=== PATIENT | female | born 1955 | race Caucasian/White ===

== ENCOUNTER 2021-06-17 17:29 | Inpatient (IN) ==
[2021-06-17] MEDS ORDERED: MoRPHine SULFATE 4 MG/ML 1 ML CARP\\VIAL IV STA (18:16)
[2021-06-17] MEDS ORDERED: CYCLOBENZAPRINE HCL 10 MG TAB PO STA (18:16)
[2021-06-17] MEDS ORDERED: KETOROLAC TROMETHAMINE 15 MG/ML VIAL IV ONE (18:16)
[2021-06-17] MEDS ORDERED: LIDOCAINE 5% 1 PATCH TD SCH (18:30)
[2021-06-17 18:59] LABS: Basophils # (auto) 0.05 K/uL (0-0.2); Basophils % (auto) 0.6 %; Eosinophils # (auto) 0.33 K/uL (0-0.5); Eosinophils % (auto) 3.9 %; Hematocrit (blood only) 38.3 % (37-47); Hemoglobin 12.6 g/dL (12.0-16.0); Immature Granulocytes # (auto) 0.01 K/uL (0.00-0.02); Immature Granulocytes % (auto) 0.1 %; Lymphocytes # (auto) 3.37 K/uL (1.2-3.4); Lymphocytes % (auto) 39.6 %; Mean Corpuscular Hemoglobin 30.2 pg (25-34); Mean Corpuscular Hgb Conc 32.9 g/dL (32-36); Mean Corpuscular Volume 91.8 fL (80-100); Mean Platelet Volume 10.9 fL (7.4-10.4); Monocytes % (auto) 9.4 %; Neutrophils # (auto) 3.96 K/uL (1.4-6.5); Neutrophils % (auto) 46.4 %; Platelet Count 308 K/uL (130-400); RDW Coefficient of Variation 12.7 % (11.5-14.5); RDW Standard Deviation 42.7 fL (36.4-46.3); Red Blood Count 4.17 M/uL (4.2-5.4); White Blood Count 8.52 K/uL (4.8-10.8)
[2021-06-17 19:09] LABS: Prothrombin Time 10.4 Seconds (9.0-12.0)
[2021-06-17 19:24] LABS: Albumin Level 3.7 gm/dl (3.4-5.0); BUN Creatinine Ratio 21.4 (10-20); Calcium 9.6 mg/dl (8.5-10.1); Creatinine Clr Calc Pharmacy 85.4 ml/min; Est GFR (African American) 84.6 ml/min; Potassium 3.5 mmol/L (3.5-5.1)
[2021-06-17 19:28] LABS: Bilirubin,Total 0.3 mg/dl (0.2-1); Globulin 3.6 gm/dl (2.5-4.0); Total Protein 7.3 gm/dl (6.4-8.2)
--- NOTE | 2021-06-17 19:29 | Emergency Department Note ---
History of Present Illness General Chief complaint: Back Injury/Pain Stated complaint: BACK PAIN, SURG WAS RESCHEDULED FOR PLACEMENT/BOLT History of Present Illness Maximum Pain Intensity: 9 This patient is a 66-year-old female who presents to the emergency department via private vehicle for evaluation of severe low back pain. The patient has a history of chronic back pain, and was due for surgery several times, which was canceled. The pain is Rating down her leg. She is also complaining of numbness and tingling down the anterior aspect of her left leg. This has been getting progressively worse over the last several months. She denies any recent injury. She has been taking Tylenol with minimal pain relief. The patient follows with Dr. Quintero. She denies any infectious symptoms such as fever. No urinary symptoms. No bowel incontinence. Home Medications Medication Instructions Recorded Confirmed Type ascorbic acid (vitamin C) 500 mg 500 mg PO QAM 03/20/21 06/17/21 History tablet (Vitamin C) atorvastatin 80 mg tablet 80 mg PO QPM 03/20/21 06/17/21 History cinnamon bark 500 mg capsule 1,000 mg PO QPM 03/20/21 06/17/21 History (Cinnamon) coQ10 (ubiquinol) 100 mg capsule 100 mg PO QAM 03/20/21 06/17/21 History diclofenac sodium 50 mg 50 mg PO QAM 03/20/21 06/17/21 History tablet,delayed release ferrous sulfate 325 mg (65 mg 325 mg PO QAM 03/20/21 06/17/21 History iron) tablet (iron) hydrochlorothiazide 25 mg tablet 25 mg PO QAM 03/20/21 06/17/21 History levocetirizine 5 mg tablet 5 mg PO QPM 03/20/21 06/17/21 History lutein 20 mg capsule 20 mg PO QAM 03/20/21 06/17/21 History metformin 500 mg tablet 500 mg PO BID 03/20/21 06/17/21 History multivitamin 1 tab PO QAM 03/20/21 06/17/21 History potassium chloride 10 mEq 10 meq PO QAM 03/20/21 06/17/21 History capsule,extended release quinapril 40 mg tablet 40 mg PO QPM 03/20/21 06/17/21 History venlafaxine 75 mg tablet 75 mg PO QAM 03/20/21 06/17/21 History verapamil 240 mg tablet,extended 240 mg PO QAM 03/20/21 06/17/21 History release aspirin 81 mg tablet,delayed 81 mg PO DAILY 06/17/21 06/17/21 History release calcium carb-Ca gluc 500 mg 1 tab PO QAM 06/17/21 06/17/21 History calcium-magnesium ox-Mg gluc 250 mg tablet (Calcium Magnesium) omega [id number]-fish oil 1,000 mg 1 cap PO BID 06/17/21 06/17/21 History (120 mg-180 mg) capsule (Fish Oil) Allergies Allergy/AdvReac Type Severity Reaction Status Date / Time No Known Allergies Allergy Verified 03/20/21 14:27 Past Med/Surg History Medical History Anemia Deep vein thrombosis 15+ years ago, on AC for short period of time, unknown etiology Diabetes mellitus, type 2 NIDDM Hx of migraines Hyperlipidemia Hypertension Lyme disease s/p treatment 01/2021 Macular degeneration Osteoarthritis Sleep apnea CPAP Spinal stenosis Surgical History H/O eye surgery R/L (laser surgery) History of colonoscopy History of hysterectomy History of tonsillectomy History of tooth extraction History of total knee replacement R/L Family History Mother Family history of diabetes mellitus Brother Family history of diabetes mellitus Sister No problems noted. Sister Family history of diabetes mellitus Father Family hx of colon cancer Other No family history of adverse response to anesthesia Social History Smoking Status: Never smoker Second Hand Exposure: No; Hx Alcohol Use: No Hx Substance Use: No Preferred Language: Bulgarian Communication Ability: Effective Photographic Technician Required: No Beliefs That Will Affect Care: None marital status: Current Living Situation: Spouse Feels Safe at Home: Yes Assistive Devices: Cane and Walker Review of Systems A total of 10 systems reviewed and were otherwise negative Physical Exam Vital Signs Vital Signs - 24 hr 06/17/21 17:48 06/17/21 20:14 Temperature 36.4 C L Temperature Source Oral Pulse Rate 77 Pulse Rhythm Regular Pulse Strength Normal Respiratory Rate 18 Respiratory Effort / Characteristics Non-Labored Spontaneous Respiratory Depth Normal Respiratory Pattern Regular Blood Pressure 195/103 H Blood Pressure [Left Arm] 142/69 H Blood Pressure Mean 133 Blood Pressure Mean [Left Arm] 93 Blood Pressure Position Sitting Blood Pressure Position [Left Arm] Lying Pulse Oximetry 96 Oxygen Delivery Method Room Air Sepsis Recent Fever Within 48 Hours No Sepsis New/Unexplained Change in Mental Status No Sepsis Action Taken by Nursing No Action Required See below Constitutional WD/WN, vitals as above Eyes EOM intact bilaterally ENMT external ear and nose normal, oropharynx normal Neck trachea midline Respiratory normal respiratory effort, lungs clear to auscultation Cardiovascular RRR, no murmur, no edema Gastrointestinal (Abdomen) normal bowel sounds, soft, nontender, no hepatosplenomegaly Musculoskeletal no cyanosis or clubbing, extremities motor strength 5/5 Mild tenderness to palpation over the lumbar spinous processes. Quadricep, hamstring, dorsiflexion, plantarflexion 5+5 bilaterally. DP pulse +2 bilaterally. Sensation in the lower extremities appears to be intact bilaterally. Skin no rashes, warm and dry Neurologic Alert and oriented x3. No focal motor deficits. Psychiatric Acting appropriately Course Course Patient was seen and examined Vital signs including blood pressure were reviewed medications list was verified with patient Labs were obtained, and a saline lock was established The patient was ordered morphine, Toradol, Flexeril and a Lidoderm patch The case was discussed with my supervising physician Upon reevaluation, the patient was more comfortable. We discussed disposition options. She was uncomfortable being discharged home and was concerned about he r pain. The case was discussed with orthopedics and also the hospitalist service. They kindly agreed to evaluate the patient for likely inpatient management. Consultations Consultation #1: Dr. Quintero Consultation #2: Dr. Jj Administered Medications Acetaminophen (Acetaminophen 325 Mg Tab) 650 mg PO Q4H PRN PRN Reason: pain/fever Stop: 07/17/21 23:33 Last Admin: 06/18/21 17:13 Dose: 650 mg Documented by: [id number] Atorvastatin Calcium (Atorvastatin 40 Mg Tab) 80 mg PO QPM [facility] Stop: 07/18/21 20:59 Last Admin: 06/18/21 21:49 Dose: 80 mg Documented by: [id number] Cetirizine HCl (Cetirizine Hcl 10 Mg Tablet) 10 mg PO QPM [facility] Stop: 07/18/21 20:59 Last Admin: 11/16/21 21:34 Dose: 10 mg Documented by: [id number] Docusate Sodium (Docusate Sodium 100 Mg Cap) 100 mg PO BID [facility] Stop: 07/18/21 20:59 Last Admin: 06/18/21 21:34 Dose: 100 mg Documented by: [id number] Enalapril Maleate (Enalapril Maleate 10 Mg Tab) 40 mg PO QPM [facility] Stop: 07/18/21 20:59 Last Admin: 06/18/21 21:36 Dose: 40 mg Documented by: [id number] Hydrochlorothiazide (Hydrochlorothiazide 25 Mg Tab) 25 mg PO QAM [facility] Stop: 07/18/21 08:59 Last Admin: 06/18/21 08:28 Dose: 25 mg Documented by: [id number] Insulin Aspart (Insulin Aspart 100 Units/Ml 3 Ml Pen) 0 units SC ACHS [facility] Stop: 07/18/21 16:29 Last Admin: 06/18/21 21:48 Dose: Not Given Documented by: [id number] Cosigned by: [id number] Admin: 06/18/21 18:06 Dose: Not Given Documented by: [id number] Lidocaine (Lidocaine 5% 1 Patch) 1 patch TD QAM [facility] Stop: 07/18/21 08:59 Last Admin: 06/18/21 08:29 Dose: 1 patch Documented by: [id number] Miscellaneous (Remove Lidoderm Patch) 1 ea N/A DAILY@2100 [facility] Stop: 07/18/21 20:59 Last Admin: 06/18/21 21:38 Dose: 1 ea Documented by: [id number] Morphine Sulfate (Morphine Sulfate 2 Mg/Ml Carp) 2 mg IV Q3H PRN PRN Reason: Pain (1,2,3,4,5) & Pre PT Stop: 07/01/21 23:33 Last Admin: 06/18/21 08:57 Dose: 2 mg Documented by: [id number] Polyethylene Glycol (Polyethylene (Miralax) 17 Gm Pack) 17 gm PO DAILY [facility] Stop: 07/18/21 08:59 Last Admin: 06/18/21 08:57 Dose: 17 gm Documented by: [id number] Venlafaxine HCl (Venlafaxine Hcl Xr 75 Mg Capxr) 75 mg PO QAM [facility] Stop: 07/18/21 08:59 Last Admin: 06/18/21 08:30 Dose: 75 mg Documented by: [id number] Verapamil HCl (Verapamil Hcl 240 Mg Tabcr) 240 mg PO QAM [facility] Stop: 07/18/21 08:59 Last Admin: 06/18/21 08:31 Dose: 240 mg Documented by: [id number] Discontinued Medications Cyclobenzaprine HCl (Cyclobenzaprine Hcl 10 Mg Tab) 5 mg PO NOW STA Stop: 06/17/21 18:17 Last Admin: 06/17/21 18:42 Dose: 5 mg Documented by: [id number] Insulin Aspart (Insulin Aspart 100 Units/Ml 3 Ml Pen) 0 units SC Q6 [facility] Stop: 07/18/21 00:00 Last Admin: 06/18/21 12:12 Dose: Not Given Documented by: [id number] Admin: 06/18/21 06:43 Dose: Not Given Documented by: [id number] Cosigned by: [id number] Admin: 06/18/21 00:51 Dose: Not Given Documented by: [id number] Cosigned by: [id number] Ketorolac Tromethamine (Ketorolac Tromethamine 15 Mg/Ml Vial) 15 mg IV NOW ONE Stop: 06/17/21 18:17 Last Admin: 06/17/21 18:42 Dose: 15 mg Documented by: [id number] Lidocaine ([facility]oc[facility] 5% 1 Patch) [facility] Stop: 07/17/21 18:29 Last Admin: 06/17/21 18:44 Dose: 1 patch Documented by: [id number] Miscellaneous (Remove Lidoderm Patch) 1 ea N/A DAILY@2100 [facility] Stop: 07/17/21 20:59 Last Admin: 06/17/21 20:19 Dose: Not Given Documented by: [id number] Miscellaneous (Xyzal~Order Awaiting Action) 1 ea N/A QS [facility] Stop: 07/18/21 00:00 Last Admin: 06/18/21 08:28 Dose: Not Given Documented by: [id number] Admin: 06/18/21 00:40 Dose: Not Given Documented by: [id number] Morphine Sulfate (Morphine Sulfate 4 Mg/Ml 1 Ml Carp\Vial) 4 mg IV NOW STA Stop: 06/17/21 18:17 Last Admin: 06/17/21 18:46 Dose: 4 mg Documented by: [id number] Morphine Sulfate (Morphine Sulfate 2 Mg/Ml Carp) 2 mg IV NOW STA Stop: 06/17/21 20:09 Last Admin: 06/17/21 20:41 Dose: 2 mg Documented by: [id number] Medical Decision Making Medical Records Attestation: I reviewed the patient's medical records. Home Medications Current Medication List: was personally reviewed by me Laboratory Data Attestation: I reviewed the patient's lab results. Result diagrams: 06/17/21 18:39 06/17/21 18:39 Lab Results 06/17/21 06/17/21 06/17/21 Range/Units 18:39 18:39 18:39 WBC 8.52 (4.8-10.8) K/uL RBC 4.17 L (4.2-5.4) M/uL Hgb 12.6 (12.0-16.0) g/dL Hct 38.3 (37-47) % MCV 91.8 (80-100) fL MCH 30.2 (25-34) pg MCHC 32.9 (32-36) g/dL RDW Std Deviation 42.7 (36.4-46.3) fL RDW Coeff of Mone 12.7 (11.5-14.5) % Plt Count 308 (130-400) K/uL MPV 10.9 H (7.4-10.4) fL Immature Gran % (Auto) 0.1 % Neut % (Auto) 46.4 % Lymph % (Auto) 39.6 % [place] % (Auto) 9.4 % Eos % (Auto) 3.9 % Baso % (Auto) 0.6 % Neut # (Auto) 3.96 (1.4-6.5) K/uL Lymph # (Auto) 3.37 (1.2-3.4) K/uL [place] # (Auto) 0.80 H (0.11-0.59) K/uL Eos # (Auto) 0.33 (0-0.5) K/uL Baso # (Auto) 0.05 (0-0.2) K/uL Immature Gran # (Auto) 0.01 (0.00-0.02) K/uL PT 10.4 (9.0-12.0) Seconds INR 1.0 (0.9-1.1) Sodium 141 (136-145) mmol/L Potassium 3.5 (3.5-5.1) mmol/L Chloride 105 (98-107) mmol/L Carbon Dioxide 30 (21-32) mmol/L Anion Gap 6.0 (3-11) BUN 18 (7-18) mg/dl Creatinine 0.83 (0.6-1.2) mg/dl Est Cr Clr Drug Dosing 85.4 ml/min Est GFR ( Amer) 84.6 ml/min Est GFR (Non-Af Amer) 73.0 ml/min BUN/Creatinine Ratio 21.4 H (10-20) Glucose 126 H (70-99) mg/dl Estimat Average Glucose mg/dl Hemoglobin A1c (4.5-5.6) % Calcium 9.6 (8.5-10.1) mg/dl Total Bilirubin 0.3 (0.2-1) mg/dl AST 19 (15-37) U/L ALT 34 (12-78) U/L Alkaline Phosphatase 73 (45-117) U/L Total Protein 7.3 (6.4-8.2) gm/dl Albumin 3.7 (3.4-5.0) gm/dl Globulin 3.6 (2.5-4.0) gm/dl Albumin/Globulin Ratio 1.0 (0.9-2) Hepatitis C Ab Screen (Neg) 06/17/21 06/17/21 Range/Units 18:39 18:39 WBC (4.8-10.8) K/uL RBC (4.2-5.4) M/uL Hgb (12.0-16.0) g/dL Hct (37-47) % MCV (80-100) fL MCH (25-34) pg MCHC (32-36) g/dL RDW Std Deviation (36.4-46.3) fL RDW Coeff of Mone (11.5-14.5) % Plt Count (130-400) K/uL MPV (7.4-10.4) fL Immature Gran % (Auto) % Neut % (Auto) % Lymph % (Auto) % [place] % (Auto) % Eos % (Auto) % Baso % (Auto) % Neut # (Auto) (1.4-6.5) K/uL Lymph # (Auto) (1.2-3.4) K/uL [place] # (Auto) (0.11-0.59) K/uL Eos # (Auto) (0-0.5) K/uL Baso # (Auto) (0-0.2) K/uL Immature Gran # (Auto) (0.00-0.02) K/uL PT (9.0-12.0) Seconds INR (0.9-1.1) Sodium (136-145) mmol/L Potassium (3.5-5.1) mmol/L Chloride (98-107) mmol/L Carbon Dioxide (21-32) mmol/L Anion Gap (3-11) BUN (7-18) mg/dl Creatinine (0.6-1.2) mg/dl Est Cr Clr Drug Dosing ml/min Est GFR ( Amer) ml/min Est GFR (Non-Af Amer) ml/min BUN/Creatinine Ratio (10-20) Glucose (70-99) mg/dl Estimat Average Glucose 157 mg/dl Hemoglobin A1c 7.1 H (4.5-5.6) % Calcium (8.5-10.1) mg/dl Total Bilirubin (0.2-1) mg/dl AST (15-37) U/L ALT (12-78) U/L Alkaline Phosphatase (45-117) U/L Total Protein (6.4-8.2) gm/dl Albumin (3.4-5.0) gm/dl Globulin (2.5-4.0) gm/dl Albumin/Globulin Ratio (0.9-2) Hepatitis C Ab Screen Neg (Neg) Imaging Data Attestation: I personally reviewed and interpreted this imaging study as follows: MDM Narrative Differential diagnosis: Spine fracture, ligamentous injury, subluxation, spondylolisthesis, spondylosis, herniated disc, contusion, muscle spasm, cauda equina syndrome, infectious etiology, among others were considered This patient is a 66-year-old female who presents emergency department with complaints of severe back pain. On exam, she was significantly hypertensive. Otherwise, vitals are stable. She was neurovascularly intact. She did have some tenderness over the spine. The patient reports having an MRI back in April. As she has not had any recent falls, I did not find extensive imaging necessary. Labs are unremarkable. The patient was hesitant about being discharged due to not being able to manage her pain at home. She did require multiple rounds of pain medication in the emergency department. For this reason, the case was discussed with orthopedics. They recommended speaking with the hospitalist for admission for pain management. The patient will be de finitively taken to the OR tomorrow. She remained stable in the emergency department. Attending Attestation: Lambert Gaston MD independently saw and evaluated this patient and agree with history and physical is otherwise documented by the physician production assistant. See their note for full details. Patient with history of back issues and has been following with Dr. Quintero. Uncontrolled pain but some improvement after IV meds here. Feels touch in both feet but some numbness to the L left which has been an ongoing issue. Patient denies falls. Patient's surgery has been postponed. Given poor pain control patient was uncomfortable with going home and will be admitted. Impression & Plan Lumbar radiculopathy, Sciatica Discharge Plan Visit Data Chief Complaint: Back Injury/Pain Stated Complaint: BACK PAIN, SURG WAS RESCHEDULED FOR PLACEMENT/BOLT ED Midlevel Provider: Shruthi Rowley Discharge Problem: Lumbar radiculopathy, Sciatica Patient Disposition: Admitted As Inpatient Discharge Instructions Interventions: ED Discharge Assessment Last Done: 06/17/21 22:00
[2021-06-17] MEDS ORDERED: MoRPHine SULFATE 2 MG/ML CARP IV STA (20:08)
--- NOTE | 2021-06-17 20:58 | History & Physical Report ---
Date of Service June 17, 2021 Assessment & Plan (1) Neurogenic claudication due to lumbar spinal stenosis: Plan: 66 yo F with hx neurogenic claudication due to lumbar spinal stenosis admitted for pain control and surgical intervention Pain control - morphine 2 mg IV Q3H - Tylenol 650 Q6h prn - toradol IV 15 mg Q6h - Surgery with Dr. Quintero in AM - holding oral diclofenac perioperatively DM2 - holding metformin - Q6H BSG while NPO - A1c in AM CAD - low risk for cardiac events, evaluated for pre-operative risk by scalper operator on 04/18/21 "Cleared from cardiac standpoint.. dyslipidemia, no clinical ASVCD. Continue lipitor.. hypertension, borderline controlled. Continue Quinapril, HCTZ, Verapamil" - continuing statin in hospital, holding ASA, HCTZ, Abiodun inhibitor anita- operatively - continue verapamil COVID19 - positive on May 29, received antibodies on jun 02 - positive pcr on 06/17 - asymptomatic at this time DVT ppx: SCDs after surgery FEN/GI: NPO at [place] Bowel regimen: prn miralax Code Status: Full Code Dispo: Med/Surg -- non-covid a[place]re negative pressure room (2) Encounter for pre-operative examination: (3) Inadequate pain control: (4) COVID-19: History of Present Illness Primary Care Provider: Shelly Bynum 66 yo F with chronic low back pain who follows with Dr. Quintero presents to the ER this evening for worsening low back pain. She states that the pain got steadily worse this afternoon. No inciting incident to worsen pain. Does have some peripheral tingling/numbness in the left leg. Pain radiates down left leg. No nausea/vomiting/diarrhea/constipation. She states the pain is the same pain she's had for months but just steadily getting worse because her surgery has gotten rescheduled multiple times. She was already scheduled for surgery with Dr. Quintero tomorrow 06/18. Allergies Allergy/AdvReac Type Severity Reaction Status Date / Time No Known Allergies Allergy Verified 03/20/21 14:27 Home Medications Medication Instructions Recorded Confirmed Type ascorbic acid (vitamin C) 500 mg 500 mg PO QAM 03/20/21 06/17/21 History tablet (Vitamin C) atorvastatin 80 mg tablet 80 mg PO QPM 03/20/21 06/17/21 History cinnamon bark 500 mg capsule 1,000 mg PO QPM 03/20/21 06/17/21 History (Cinnamon) coQ10 (ubiquinol) 100 mg capsule 100 mg PO QAM 03/20/21 06/17/21 History diclofenac sodium 50 mg 50 mg PO QAM 03/20/21 06/17/21 History tablet,delayed release ferrous sulfate 325 mg (65 mg 325 mg PO QAM 03/20/21 06/17/21 History iron) tablet (iron) hydrochlorothiazide 25 mg tablet 25 mg PO QAM 03/20/21 06/17/21 History levocetirizine 5 mg tablet 5 mg PO QPM 03/20/21 06/17/21 History lutein 20 mg capsule 20 mg PO QAM 03/20/21 06/17/21 History metformin 500 mg tablet 500 mg PO BID 03/20/21 06/17/21 History multivitamin 1 tab PO QAM 03/20/21 06/17/21 History potassium chloride 10 mEq 10 meq PO QAM 03/20/21 06/17/21 History capsule,extended release quinapril 40 mg tablet 40 mg PO QPM 03/20/21 06/17/21 History venlafaxine 75 mg tablet 75 mg PO QAM 03/20/21 06/17/21 History verapamil 240 mg tablet,extended 240 mg PO QAM 03/20/21 06/17/21 History release aspirin 81 mg tablet,delayed 81 mg PO DAILY 06/17/21 06/17/21 History release calcium carb-Ca gluc 500 mg 1 tab PO QAM 06/17/21 06/17/21 History calcium-magnesium ox-Mg gluc 250 mg tablet (Calcium Magnesium) omega 5-snj-ozk-fish oil 1,000 mg 1 cap PO BID 06/17/21 06/17/21 History (120 mg-180 mg) capsule (Fish Oil) Past Med/Surg History Medical History Anemia Deep vein thrombosis 15+ years ago, on AC for short period of time, unknown etiology Diabetes mellitus, type 2 NIDDM Hx of migraines Hyperlipidemia Hypertension Lyme disease s/p treatment 01/2021 Macular degeneration Osteoarthritis Sleep apnea CPAP Spinal stenosis Surgical History H/O eye surgery R/L (laser surgery) History of colonoscopy History of hysterectomy History of tonsillectomy History of tooth extraction History of total knee replacement R/L Family History Mother Family history of diabetes mellitus Brother Family history of diabetes mellitus Sister No problems noted. Sister Family history of diabetes mellitus Father Family hx of colon cancer Other No family history of adverse response to anesthesia Social History Smoking Status: Never smoker Second Hand Exposure: No; Hx Alcohol Use: No Hx Substance Use: No Preferred Language: Lao Advanced Clinical Specialist Required: No Beliefs That Will Affect Care: None Current Living Situation: Spouse Other Information That Helps Us Care for You: No Feels Safe at Home: Yes Safety Concerns: Feels Safe At This Time Assistive Devices: CPAP and Glasses Assistive Devices Comment: CPAP glasses Review of Systems Constitutional: no fever, no chills, no body aches and no fatigue Respiratory: no cough and no dyspnea Cardiovascular: no chest pain, no dyspnea and no edema Gastrointestinal: no abdominal pain, no nausea, no vomiting, no constipation and no diarrhea/loose stools Genitourinary: no dysuria Musculoskeletal: + back pain and + radicular pain Neurologic: no tingling, no numbness, no dizziness and no confusion Physical Exam Physical Exam: Constitutional: obese, in no apparent distress, sitting comfortably in bed. Eyes: EOMI, pupils equal and reactive bilaterally, no scleral icterus Cardiac: RRR, no murmurs, gallops or rubs. Normal S1, S2 Pulm: CTA BL, no wheezes, rhonchi, crackles or rubs, moving air well throughout both lungs Abd: soft, nontender, nondistended, normal bowel sounds, no rebound or guarding Extremities: 2+ peripheral pulses, no edema Neuro: no focal deficits, moving all 4 limbs, A&Ox3 Results & Data Results & Data ([facility]) Vital Signs (Past 12 Hours) Vital Signs Temp Pulse Resp BP BP Pulse Ox 06/17/21 20:14 142/69 H 06/17/21 17:48 36.4 C L 77 18 195/103 H 96 Laboratory Results Laboratory Results WBC 8.52 K/uL (4.8-10.8) 06/17/21 18:39 RBC 4.17 M/uL (4.2-5.4) L 06/17/21 18:39 Hgb 12.6 g/dL (12.0-16.0) 06/17/21 18:39 Hct 38.3 % (37-47) 06/17/21 18:39 MCV 91.8 fL (80-100) 06/17/21 18:39 MCH 30.2 pg (25-34) 06/17/21 18:39 MCHC 32.9 g/dL (32-36) 06/17/21 18:39 RDW Std Deviation 42.7 fL (36.4-46.3) 06/17/21 18:39 RDW Coeff of Mone 12.7 % (11.5-14.5) 06/17/21 18:39 Plt Count 308 K/uL (130-400) 06/17/21 18:39 MPV 10.9 fL (7.4-10.4) H 06/17/21 18:39 Immature Gran % (Auto) 0.1 % 06/17/21 18:39 Neut % (Auto) 46.4 % 06/17/21 18:39 Lymph % (Auto) 39.6 % 06/17/21 18:39 [place] % (Auto) 9.4 % 06/17/21 18:39 Eos % (Auto) 3.9 % 06/17/21 18:39 Baso % (Auto) 0.6 % 06/17/21 18:39 Neut # (Auto) 3.96 K/uL (1.4-6.5) 06/17/21 18:39 Lymph # (Auto) 3.37 K/uL (1.2-3.4) 06/17/21 18:39 [place] # (Auto) 0.80 K/uL (0.11-0.59) H 06/17/21 18:39 Eos # (Auto) 0.33 K/uL (0-0.5) 06/17/21 18:39 Baso # (Auto) 0.05 K/uL (0-0.2) 06/17/21 18:39 Immature Gran # (Auto) 0.01 K/uL (0.00-0.02) 06/17/21 18:39 PT 10.4 Seconds (9.0-12.0) 06/17/21 18:39 INR 1.0 (0.9-1.1) 06/17/21 18:39 Sodium 141 mmol/L (136-145) 06/17/21 18:39 Potassium 3.5 mmol/L (3.5-5.1) 06/17/21 18:39 Chloride 105 mmol/L (98-107) 06/17/21 18:39 Carbon Dioxide 30 mmol/L (21-32) 06/17/21 18:39 Anion Gap 6.0 (3-11) 06/17/21 18:39 BUN 18 mg/dl (7-18) 06/17/21 18:39 Creatinine 0.83 mg/dl (0.6-1.2) 06/17/21 18:39 Est Cr Clr Drug Dosing 85.4 ml/min 06/17/21 18:39 Est GFR ( Amer) 84.6 ml/min 06/17/21 18:39 Est GFR (Non-Af Amer) 73.0 ml/min 06/17/21 18:39 BUN/Creatinine Ratio 21.4 (10-20) H 06/17/21 18:39 Glucose 126 mg/dl (70-99) H 06/17/21 18:39 Calcium 9.6 mg/dl (8.5-10.1) 06/17/21 18:39 Total Bilirubin 0.3 mg/dl (0.2-1) 06/17/21 18:39 AST 19 U/L (15-37) 06/17/21 18:39 ALT 34 U/L (12-78) 06/17/21 18:39 Alkaline Phosphatase 73 U/L (45-117) 06/17/21 18:39 Total Protein 7.3 gm/dl (6.4-8.2) 06/17/21 18:39 Albumin 3.7 gm/dl (3.4-5.0) 06/17/21 18:39 Globulin 3.6 gm/dl (2.5-4.0) 06/17/21 18:39 Albumin/Globulin Ratio 1.0 (0.9-2) 06/17/21 18:39 COVID-19 Eval Order Covid19 at [facility] 06/17/21 Unknown Supervising Physician Co-Signing Physician Notes Patient seen and examined, chart reviewed, case discussed with Dr. Guthrie and I agree with her assessment and plan as documented above. In brief, patient is a 66yo female with acute worsening of chronic back pain. Patient denies fall, trauma, fever, chills. She has some numbness/tingling and neurogenic claudication involving the LLE. No changes in bowel/bladder. Pain significantly worse which prompted her to seek ER care. She is scheduled for surgery with Dr. Quintero tomorrow. On exam she is afebrile, hypertensive, otherwise HD stable. NAD, resting comfortably in bed Skin - warm, dry, intact HEENT - NC/AT, PERRL, MMM, Neck supple Heart - +S1/S2, regular, no m/r/g Lungs - CTA Abd - +BS, soft, NT/ND Ext - No edema Labs and images reviewed. Covid-19 PCR is POSITIVE Assessment/Plan Covid-19 - patient was first diagnosed with Covid-19 on 05/29/21. She reports overall improvement in symptoms - is afebrile, no respiratory complaints. Her PCR testing is POSITIVE today most likely demonstrating detectable viral RNA particles rather than ongoing infection. Will continue isolation precautions in private room if able Ortho consultation appreciated. Pain control Remainder of plan as above Resident Activity Tracking Resident Involvement: Resident Care Provided Care Provided: Adult Hospital Medicine
[2021-06-17] MEDS ORDERED: ONDANSETRON INJ 2 MG/ML 2 ML VIAL IV PRN (23:34)
[2021-06-17] MEDS ORDERED: GLUCOSE 40% GEL 15 GM TUBE PO PRN (23:34)
[2021-06-17] MEDS ORDERED: GLUCOSE 10 TABS/TUBE PO PRN (23:34)
[2021-06-17] MEDS ORDERED: KETOROLAC TROMETHAMINE 15 MG/ML VIAL IV PRN (23:34)
[2021-06-17] MEDS ORDERED: GLUCAGON FOR INJ 1 MG VIAL SQ PRN (23:34)
[2021-06-17] MEDS ORDERED: CARBOHYDRATES FOR HYPOGLYCEMIA PO PRN (23:34)
[2021-06-17] MEDS ORDERED: DEXTROSE 50% 50 ML SYRINGE IV PRN (23:34)
[2021-06-17] MEDS ORDERED: MELATONIN 3 MG TAB PO PRN (23:34)
[2021-06-18] MEDS: XYZAL~ORDER AWAITING ACTION SCH ×2 (00:40→08:28)
[2021-06-18] MEDS: INSULIN ASPART 100 UNITS/ML 3 ML PEN SC SCH ×5 (00:51→21:48)
--- NOTE | 2021-06-18 02:03 | Billing Data ---
Date of Service June 17, 2021 Coding Level of Care Code 06736 Initial Inpt Care Lvl 2
[2021-06-18 07:41] LABS: Estimated Average Glucose 157 mg/dl; Hemoglobin A1C 7.1 % (4.5-5.6)
[2021-06-18] MEDS: hydroCHLOROthiazide 25 MG TAB PO SCH (08:28)
[2021-06-18] MEDS: LIDOCAINE 5% 1 PATCH TD SCH (08:29)
[2021-06-18] MEDS: VENLAFAXINE HCL XR 75 MG CAPXR PO SCH (08:30)
--- NOTE | 2021-06-18 08:30 | Orthopedic Consultation ---
Date of Consultation June 18, 2021 Assessment & Plan (1) Neurogenic claudication due to lumbar spinal stenosis: This time she is presenting with worsening pain and in a new pattern of groin symptoms. I like to obtain an MRI lumbar spine to rule out advanced adjacent level disease. Ultimately she will require at minimum lumbar decompression and fusion L4-5 L5-S1 to to adequately decompress the canal and stabilize her instability at the L4-5 L5-S1 levels. She is currently positive f or Covid. She is well beyond the 2-week period of having had symptoms from Covid. Should not ultimately affect her treatment plan at this time. History of Present Illness Reason for Consultation: Back and leg pain Attending Physician: Caprice Jackson MD History of Present Illness This is a 66-year-old female well-known to me the presents with marked clinical status. She continues to have back and bilateral leg pain left greater than right. She now describes pain particularly left buttock radiating to the groin and anterolateral thigh below the knee to the foot. It limits her ability to stand and ambulate. The pain is become uncontrollable. She has been scheduled for surgery several times but canceled secondary to hospital related limitations. Allergies Allergy/AdvReac Type Severity Reaction Status Date / Time No Known Allergies Allergy Verified 03/20/21 14:27 Home Medications Medication Instructions Recorded Confirmed Type ascorbic acid (vitamin C) 500 mg 500 mg PO QAM 03/20/21 06/17/21 History tablet (Vitamin C) atorvastatin 80 mg tablet 80 mg PO QPM 03/20/21 06/17/21 History cinnamon bark 500 mg capsule 1,000 mg PO QPM 03/20/21 06/17/21 History (Cinnamon) coQ10 (ubiquinol) 100 mg capsule 100 mg PO QAM 03/20/21 06/17/21 History diclofenac sodium 50 mg 50 mg PO QAM 03/20/21 06/17/21 History tablet,delayed release ferrous sulfate 325 mg (65 mg 325 mg PO QAM 03/20/21 06/17/21 History iron) tablet (iron) hydrochlorothiazide 25 mg tablet 25 mg PO QAM 03/20/21 06/17/21 History levocetirizine 5 mg tablet 5 mg PO QPM 03/20/21 06/17/21 History lutein 20 mg capsule 20 mg PO QAM 03/20/21 06/17/21 History metformin 500 mg tablet 500 mg PO BID 03/20/21 06/17/21 History multivitamin 1 tab PO QAM 03/20/21 06/17/21 History potassium chloride 10 mEq 10 meq PO QAM 03/20/21 06/17/21 History capsule,extended release quinapril 40 mg tablet 40 mg PO QPM 03/20/21 06/17/21 History venlafaxine 75 mg tablet 75 mg PO QAM 03/20/21 06/17/21 History verapamil 240 mg tablet,extended 240 mg PO QAM 03/20/21 06/17/21 History release aspirin 81 mg tablet,delayed 81 mg PO DAILY 06/17/21 06/17/21 History release calcium carb-Ca gluc 500 mg 1 tab PO QAM 06/17/21 06/17/21 History calcium-magnesium ox-Mg gluc 250 mg tablet (Calcium Magnesium) omega 6-xdb-aid-fish oil 1,000 mg 1 cap PO BID 06/17/21 06/17/21 History (120 mg-180 mg) capsule (Fish Oil) Patient History Medical History Anemia Deep vein thrombosis 15+ years ago, on AC for short period of time, unknown etiology Diabetes mellitus, type 2 NIDDM Hx of migraines Hyperlipidemia Hypertension Lyme disease s/p treatment 01/2021 Macular degeneration Osteoarthritis Sleep apnea CPAP Spinal stenosis Surgical History H/O eye surgery R/L (laser surgery) History of colonoscopy History of hysterectomy History of tonsillectomy History of tooth extraction History of total knee replacement R/L Family History Mother Family history of diabetes mellitus Brother Family history of diabetes mellitus Sister No problems noted. Sister Family history of diabetes mellitus Father Family hx of colon cancer Other No family history of adverse response to anesthesia Social History Smoking Status: Never smoker Second Hand Exposure: No; Hx Alcohol Use: No Hx Substance Use: No Preferred Language: Burmese Underwriting Director Required: No Beliefs That Will Affect Care: None Current Living Situation: Spouse Feels Safe at Home: Yes Assistive Devices: CPAP and Glasses Physical Exam Physical Exam: On exam she is now is in obvious severe distress. She is demonstrate reasonable dorsiflexion plantarflexion extensor hallucis longus as well as quadricep bilaterally. Negative logroll bilaterally. Sensory is intact. Results & Data ([facility]) Vital Signs (Past 12 Hours) Vital Signs Temp Pulse Resp BP Pulse Ox 06/18/21 08:18 36.4 C L 64 16 144/81 H 96 06/18/21 00:22 36.6 C 63 19 156/88 H 99
[2021-06-18] MEDS: VERAPAMIL HCL 240 MG TABCR PO SCH (08:31)
[2021-06-18] MEDS: POLYETHYLENE (MIRALAX) 17 GM PACK PO SCH (08:57)
[2021-06-18] MEDS: MoRPHine SULFATE 2 MG/ML CARP IV PRN (08:57)
[2021-06-18] MEDS ORDERED: hydroCHLOROthiazide 25 MG TAB PO SCH (09:00)
--- NOTE | 2021-06-18 12:53 | Magnetic Resonance Report ---
MR lumbar spine wo con CLINICAL HISTORY: 66 years-old Female with leg pain. Acute severe low back pain with radiation into the left lower extremity. Left lower extremity numbness. COMPARISON: None. TECHNIQUE: Multiplanar, multi sequence MRI of the lumbar spine was performed without intravenous cont rast. FINDINGS: Mildly motion degraded exam. 7.7 x 5.9 cm T2 hyperintense lesion of the right kidney is suggestive of a probable cyst, partially imaged on this study. 1.3 cm L4 and 0.7 cm T11 vertebral body hemangiomat a. 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 No acute fracture, subluxation or endplate erosion. Minimal bone deneen ow edema involving the right L5 pedicle may represent a mild stress response. The conus medullaris te rminates at L1-L2. Signal within the imaged thoracic spinal cord and cauda equina appears unremarkabl e. T11-T12: Mild spondylitic spurring with small posterior annular disc bulge and mild facet arthrosis. Flattening of the ventral thecal sac without significant central canal or neural foraminal narrowing. T12-L1: Mild spondylitic spurring and facet arthrosis. No central canal or neural foraminal stenosis . L1-L2: Mild spondylitic spurring and facet arthrosis. No central canal or neural foraminal stenosis. L2-L3: Minimal intervertebral disc space narrowing with disc desiccation. Mild spondylitic spurring with small posterior annular disc bulge. No central canal or neural foraminal stenosis. L3-L4: Mild disc desiccation with spondylitic spurring and small circumferential annular disc bulge favoring the right lateral recess and right neural foramen. There is ligamentum flavum thickening wit h mild facet arthrosis. No central canal or neural foraminal stenosis. L4-L5: 4 mm anterolisthesis. Mild intervertebral disc space narrowing with disc desiccation, spondyl itic spurring and circumferential annular disc bulge favoring the right neural foramen and far latera l distribution. Severe facet arthrosis with ligamentum flavum thickening. Severe central canal stenos is with AP dimension of the thecal sac measuring approximately 5 mm. Severe right with [id number]-rk-ceutfx te left neural foraminal narrowing. L5-S1: 6 mm anterolisthesis. Mild intervertebral disc space narrowing with disc desiccation, spondyl itic spurring and circumferential annular disc bulge/disc space uncovering. Severe facet arthrosis. M oderate central canal stenosis, AP dimension of the thecal sac measuring 8 mm. There is at least mode rate narrowing of the left lateral recess. Moderate right with moderate to severe left neural foramin al narrowing. IMPRESSION: 1. Grade 1 anterolisthesis L4 on L5 and L5 on S1 is likely secondary to chronic severe facet arthrosi s. 2. At L4-L5, there is severe central canal stenosis with severe right and [id number]-ua-spiqhsdz left neura l foraminal narrowing. 3. Moderate central canal stenosis at L5-S1. 4. Multilevel neural foraminal narrowing as above. ACT 112: Negative or not required by law. The above report was generated using voice recognition software. It may contain grammatical, syntax o r spelling errors. Dictated: 06/18/2021 11:55 AM Transcribed: 06/18/2021 12:39 PM Jody [id number] [email or web address] Electronically signed by: Camilo Chun M.D. 06/18/2021 12:52 PM
[2021-06-18] MEDS ORDERED: Nursing to Pharmacy Communication SCH (15:45)
--- NOTE | 2021-06-18 15:49 | Hospitalist Progress Note ---
Date of Service June 18, 2021 Assessment & Plan (1) Neurogenic claudication due to lumbar spinal stenosis: Plan: 66 yo F with hx neurogenic claudication due to lumbar spinal stenosis admitted for pain control and surgical intervention Pain control - morphine 2 mg IV Q3H - Tylenol 650 Q6h prn - dc toradol as want to avoid NSAIDs prior to spine surgery -add oxycodone 5mg po q4h prn mod-severe pain - Surgery with Dr. Quintero planned likely for -medically optimized for surgery and seen by her Echocardiograph Technician prior to surgery -NPO after midnight Thu (2) Inadequate pain control: Plan: as above (3) COVID-19: Plan: tested positive on 05/29 and had sinus congestion and headache for a few days, received Regeneron on 06/02 and had improvement COVID test here still positive Now asymptomatic and 20 days since initial positive test--> discussed with Infection Control--> remove COVID precautions (4) Hypertension: Plan: BPs controlled to mildly high - continuing HCTZ, restart quinapril but hold both AM of surgery - continue verapamil (5) Sleep apnea: Plan: continue home CPAP qhs (6) Deep vein thrombosis: Plan: h/o such in 2010, unprovoked, treated with AC for several months -add on SCDs, encourage mobilization as able can't use Lovenox in setting of spine surgery (7) Hyperlipidemia: Plan: continue statin (8) Diabetes mellitus, type 2: Plan: - holding metformin - Novolog SSI - A1c 7.1%, well controlled -ADA diet Plan: DVT proph- add SCDs Dispo-continued stay Admission and Anticipated Discharge Date Admission Date: June 17, 2021 Subjective Pt has numbness and pain down her LLE to the foot. Otherwise doing ok as long as not moving. Wants to get up and walk the halls. Denies CP or SOB, no nausea. Review of Systems Review of Systems: All systems reviewed & are unremarkable except as noted in HPI & below Physical Exam Constitutional: WD/WN, vitals as above Neck: trachea midline, no thyromegaly Respiratory: normal respiratory effort, lungs clear to auscultation Cardiovascular: RRR, no murmur, no edema Chest (Breasts): Chest: normal inspection of chest Gastrointestinal (Abdomen): normal bowel sounds, soft, nontender, no hepatosplenomegaly Musculoskeletal: Extremities: extremities normal to inspection; no cyanosis and no clubbing Skin: no rashes, warm and dry Neurologic: moves all extremities and awake; no focal motor deficits Psychiatric: A+Ox3, euthymic affect Lymphatic: no lymphedema Results & Data Results & Data ([facility]) Vital Signs (Past 12 Hours) Vital Signs Temp Pulse Resp BP Pulse Ox 06/18/21 15:46 36.7 C 62 18 144/86 H 94 06/18/21 08:18 36.4 C L 64 16 144/81 H 96 Laboratory Results 06/18/21 06/18/21 06/18/21 Range/Units 12:09 06:18 00:21 WBC (4.8-10.8) K/uL RBC (4.2-5.4) M/uL Hgb (12.0-16.0) g/dL Hct (37-47) % MCV (80-100) fL MCH (25-34) pg MCHC (32-36) g/dL RDW Std Deviation (36.4-46.3) fL RDW Coeff of Mone (11.5-14.5) % Plt Count (130-400) K/uL MPV (7.4-10.4) fL Immature Gran % (Auto) % Neut % (Auto) % Lymph % (Auto) % Warrick % (Auto) % Eos % (Auto) % Baso % (Auto) % Neut # (Auto) (1.4-6.5) K/uL Lymph # (Auto) (1.2-3.4) K/uL Warrick # (Auto) (0.11-0.59) K/uL Eos # (Auto) (0-0.5) K/uL Baso # (Auto) (0-0.2) K/uL Immature Gran # (Auto) (0.00-0.02) K/uL PT (9.0-12.0) Seconds INR (0.9-1.1) Sodium (136-145) mmol/L Potassium (3.5-5.1) mmol/L Chloride (98-107) mmol/L Carbon Dioxide (21-32) mmol/L Anion Gap (3-11) BUN (7-18) mg/dl Creatinine (0.6-1.2) mg/dl Est Cr Clr Drug Dosing ml/min Est GFR ( Amer) ml/min Est GFR (Non-Af Amer) ml/min BUN/Creatinine Ratio (10-20) Glucose (70-99) mg/dl POC Glucose 113 H 123 H 127 H (70-99) mg/dl Estimat Average Glucose mg/dl Hemoglobin A1c (4.5-5.6) % Calcium (8.5-10.1) mg/dl Total Bilirubin (0.2-1) mg/dl AST (15-37) U/L ALT (12-78) U/L Alkaline Phosphatase (45-117) U/L Total Protein (6.4-8.2) gm/dl Albumin (3.4-5.0) gm/dl Globulin (2.5-4.0) gm/dl Albumin/Globulin Ratio (0.9-2) COVID-19 Eval Order SARS-CoV-2 (PCR) (Negative) Hepatitis C Ab Screen (Neg) 06/17/21 06/17/21 06/17/21 Range/Units Unknown Unknown 18:39 WBC (4.8-10.8) K/uL RBC (4.2-5.4) M/uL Hgb (12.0-16.0) g/dL Hct (37-47) % MCV (80-100) fL MCH (25-34) pg MCHC (32-36) g/dL RDW Std Deviation (36.4-46.3) fL RDW Coeff of Mone (11.5-14.5) % Plt Count (130-400) K/uL MPV (7.4-10.4) fL Immature Gran % (Auto) % Neut % (Auto) % Lymph % (Auto) % Warrick % (Auto) % Eos % (Auto) % Baso % (Auto) % Neut # (Auto) (1.4-6.5) K/uL Lymph # (Auto) (1.2-3.4) K/uL Warrick # (Auto) (0.11-0.59) K/uL Eos # (Auto) (0-0.5) K/uL Baso # (Auto) (0-0.2) K/uL Immature Gran # (Auto) (0.00-0.02) K/uL PT (9.0-12.0) Seconds INR (0.9-1.1) Sodium (136-145) mmol/L Potassium (3.5-5.1) mmol/L Chloride (98-107) mmol/L Carbon Dioxide (21-32) mmol/L Anion Gap (3-11) BUN (7-18) mg/dl Creatinine (0.6-1.2) mg/dl Est Cr Clr Drug Dosing ml/min Est GFR ( Amer) ml/min Est GFR (Non-Af Amer) ml/min BUN/Creatinine Ratio (10-20) Glucose (70-99) mg/dl POC Glucose (70-99) mg/dl Estimat Average Glucose mg/dl Hemoglobin A1c (4.5-5.6) % Calcium (8.5-10.1) mg/dl Total Bilirubin (0.2-1) mg/dl AST (15-37) U/L ALT (12-78) U/L Alkaline Phosphatase (45-117) U/L Total Protein (6.4-8.2) gm/dl Albumin (3.4-5.0) gm/dl Globulin (2.5-4.0) gm/dl Albumin/Globulin Ratio (0.9-2) COVID-19 Eval Order Covid19 at [facility] SARS-CoV-2 (PCR) POSITIVE A* (Negative) Hepatitis C Ab Screen Neg (Neg) 06/17/21 06/17/21 06/17/21 Range/Units 18:39 18:39 18:39 WBC (4.8-10.8) K/uL RBC (4.2-5.4) M/uL Hgb (12.0-16.0) g/dL Hct (37-47) % MCV (80-100) fL MCH (25-34) pg MCHC (32-36) g/dL RDW Std Deviation (36.4-46.3) fL RDW Coeff of Mone (11.5-14.5) % Plt Count (130-400) K/uL MPV (7.4-10.4) fL Immature Gran % (Auto) % Neut % (Auto) % Lymph % (Auto) % Warrick % (Auto) % Eos % (Auto) % Baso % (Auto) % Neut # (Auto) (1.4-6.5) K/uL Lymph # (Auto) (1.2-3.4) K/uL Warrick # (Auto) (0.11-0.59) K/uL Eos # (Auto) (0-0.5) K/uL Baso # (Auto) (0-0.2) K/uL Immature Gran # (Auto) (0.00-0.02) K/uL PT 10.4 (9.0-12.0) Seconds INR 1.0 (0.9-1.1) Sodium 141 (136-145) mmol/L Potassium 3.5 (3.5-5.1) mmol/L Chloride 105 (98-107) mmol/L Carbon Dioxide 30 (21-32) mmol/L Anion Gap 6.0 (3-11) BUN 18 (7-18) mg/dl Creatinine 0.83 (0.6-1.2) mg/dl Est Cr Clr Drug Dosing 85.4 ml/min Est GFR ( Amer) 84.6 ml/min Est GFR (Non-Af Amer) 73.0 ml/min BUN/Creatinine Ratio 21.4 H (10-20) Glucose 126 H (70-99) mg/dl POC Glucose (70-99) mg/dl Estimat Average Glucose 157 mg/dl Hemoglobin A1c 7.1 H (4.5-5.6) % Calcium 9.6 (8.5-10.1) mg/dl Total Bilirubin 0.3 (0.2-1) mg/dl AST 19 (15-37) U/L ALT 34 (12-78) U/L Alkaline Phosphatase 73 (45-117) U/L Total Protein 7.3 (6.4-8.2) gm/dl Albumin 3.7 (3.4-5.0) gm/dl Globulin 3.6 (2.5-4.0) gm/dl Albumin/Globulin Ratio 1.0 (0.9-2) COVID-19 Eval Order SARS-CoV-2 (PCR) (Negative) Hepatitis C Ab Screen (Neg) 06/17/21 Range/Units 18:39 WBC 8.52 (4.8-10.8) K/uL RBC 4.17 L (4.2-5.4) M/uL Hgb 12.6 (12.0-16.0) g/dL Hct 38.3 (37-47) % MCV 91.8 (80-100) fL MCH 30.2 (25-34) pg MCHC 32.9 (32-36) g/dL RDW Std Deviation 42.7 (36.4-46.3) fL RDW Coeff of Mone 12.7 (11.5-14.5) % Plt Count 308 (130-400) K/uL MPV 10.9 H (7.4-10.4) fL Immature Gran % (Auto) 0.1 % Neut % (Auto) 46.4 % Lymph % (Auto) 39.6 % Warrick % (Auto) 9.4 % Eos % (Auto) 3.9 % Baso % (Auto) 0.6 % Neut # (Auto) 3.96 (1.4-6.5) K/uL Lymph # (Auto) 3.37 (1.2-3.4) K/uL Warrick # (Auto) 0.80 H (0.11-0.59) K/uL Eos # (Auto) 0.33 (0-0.5) K/uL Baso # (Auto) 0.05 (0-0.2) K/uL Immature Gran # (Auto) 0.01 (0.00-0.02) K/uL PT (9.0-12.0) Seconds INR (0.9-1.1) Sodium (136-145) mmol/L Potassium (3.5-5.1) mmol/L Chloride (98-107) mmol/L Carbon Dioxide (21-32) mmol/L Anion Gap (3-11) BUN (7-18) mg/dl Creatinine (0.6-1.2) mg/dl Est Cr Clr Drug Dosing ml/min Est GFR ( Amer) ml/min Est GFR (Non-Af Amer) ml/min BUN/Creatinine Ratio (10-20) Glucose (70-99) mg/dl POC Glucose (70-99) mg/dl Estimat Average Glucose mg/dl Hemoglobin A1c (4.5-5.6) % Calcium (8.5-10.1) mg/dl Total Bilirubin (0.2-1) mg/dl AST (15-37) U/L ALT (12-78) U/L Alkaline Phosphatase (45-117) U/L Total Protein (6.4-8.2) gm/dl Albumin (3.4-5.0) gm/dl Globulin (2.5-4.0) gm/dl Albumin/Globulin Ratio (0.9-2) COVID-19 Eval Order SARS-CoV-2 (PCR) (Negative) Hepatitis C Ab Screen (Neg) PG Care Time/CCT Total # of Minutes Spent Total Time Spent with Patient: Total time spent is greater than 50% in coordination of care (as documented) at patient's floor/unit and/or counseling patient: Coding Level of Care Code 09854 Subseq Hosp Care Lvl 2 Diagnoses Neurogenic claudication due to lumbar spinal stenosis M48.062 Inadequate pain control R52 COVID-19 U07.1 Hypertension I10 Sleep apnea G47.30 Deep vein thrombosis I82.409 Hyperlipidemia E78.5 Diabetes mellitus, type 2 E11.9
[2021-06-18] MEDS: ACETAMINOPHEN 325 MG TAB PO PRN (17:13)
[2021-06-18] MEDS: CETIRIZINE HCL 10 MG TABLET PO SCH (21:34)
[2021-06-18] MEDS: DOCUSATE SODIUM 100 MG CAP PO SCH (21:34)
[2021-06-18] MEDS: ENALAPRIL MALEATE 10 MG TAB PO SCH (21:36)
[2021-06-18] MEDS: ATORVASTATIN 40 MG TAB PO SCH (21:49)
[2021-06-19] MEDS: VENLAFAXINE HCL XR 75 MG CAPXR PO SCH (09:42)
[2021-06-19] MEDS: DOCUSATE SODIUM 100 MG CAP PO SCH ×2 (09:42→21:58)
[2021-06-19] MEDS: POLYETHYLENE (MIRALAX) 17 GM PACK PO SCH (09:42)
[2021-06-19] MEDS: hydroCHLOROthiazide 25 MG TAB PO SCH (09:43)
[2021-06-19] MEDS: VERAPAMIL HCL 240 MG TABCR PO SCH (09:43)
[2021-06-19] MEDS: LIDOCAINE 5% 1 PATCH TD SCH (09:43)
[2021-06-19] MEDS: INSULIN ASPART 100 UNITS/ML 3 ML PEN SC SCH (09:48)
[2021-06-19] MEDS: INSULIN ASPART 100 UNITS/ML VIAL SC SCH ×4 (10:58→20:34)
--- NOTE | 2021-06-19 14:05 | Hospitalist Progress Note ---
Date of Service June 19, 2021 Assessment & Plan (1) Neurogenic claudication due to lumbar spinal stenosis: Plan: 66 yo F with hx neurogenic claudication due to lumbar spinal stenosis admitted for pain control and surgical intervention continue Pain control awaiting surgical intervention likely - continue morphine 2 mg IV Q3H prn - Tylenol 650 Q6h prn -continue oxycodone 5mg po q4h prn mod-severe pain--> has not used any yet - Surgery with Dr. Quintero planned likely for -medically optimized for surgery and seen by her Outbound Telemarketing Representative prior to surgery -NPO after midnight Thu, start gentle maintenance IVFs at midnight (2) Inadequate pain control: Plan: as above (3) COVID-19: Plan: tested positive on 05/29 and had sinus congestion and headache for a few days, received Regeneron on 06/02 and had improvement COVID test here still positive Now asymptomatic and >20 days since initial positive test--> discussed with Infection Control--> removed COVID precautions (4) Hypertension: Plan: BPs controlled to mildly high - continuing HCTZ, quinapril but hold both on day of surgery - continue verapamil (5) Sleep apnea: Plan: continue home CPAP qhs (6) Deep vein thrombosis: Plan: h/o such in 2010, unprovoked, treated with AC for several months -continue on SCDs, encourage mobilization as able can't use Lovenox in setting of spine surgery (7) Hyperlipidemia: Plan: continue statin (8) Diabetes mellitus, type 2: Plan: - holding metformin - Novolog SSI - A1c 7.1%, well controlled -ADA diet Plan: DVT proph- SCDs Dispo-continued stay Admission and Anticipated Discharge Date Admission Date: June 17, 2021 Subjective Feeling well, still same pain in LLE but manageable with pain meds. Is ambulating to BR and back, had a BM, eating and drinking. Denies CP or SOB. No lightheadedness. Review of Systems Review of Systems: All systems reviewed & are unremarkable except as noted in HPI & below Physical Exam Constitutional: WD/WN, vitals as above Neck: trachea midline, no thyromegaly Respiratory: normal respiratory effort, lungs clear to auscultation Cardiovascular: RRR, no murmur, no edema Chest (Breasts): Chest: normal inspection of chest Gastrointestinal (Abdomen): normal bowel sounds, soft, nontender, no hepatosplenomegaly Musculoskeletal: Extremities: extremities normal to inspection; no cyanosis and no clubbing Skin: no rashes, warm and dry Neurologic: moves all extremities and awake; no focal motor deficits Psychiatric: A+Ox3, euthymic affect Lymphatic: no lymphedema Results & Data Results & Data ([facility]) Vital Signs (Past 12 Hours) Vital Signs Temp Pulse Resp BP Pulse Ox 06/19/21 07:23 36.6 C 58 L 20 150/87 H 96 PG Care Time/CCT Total # of Minutes Spent Total Time Spent with Patient: Total time spent is greater than 50% in coordination of care (as documented) at patient's floor/unit and/or counseling patient: Coding Level of Care Code 44592 Subseq Hosp Care Lvl 2 Diagnoses Neurogenic claudication due to lumbar spinal stenosis M48.062 Inadequate pain control R52 COVID-19 U07.1 Hypertension I10 Sleep apnea G47.30 Deep vein thrombosis I82.409 Hyperlipidemia E78.5 Diabetes mellitus, type 2 E11.9
--- NOTE | 2021-06-19 16:06 | Orthopedic Progress Note ---
Date of Service June 19, 2021 Assessment & Plan (1) Lumbar radiculopathy: Plan: At this time updated MRI continues to demonstrate severe nerve compression with spondylolisthesis L4-5 L5-S1. This time we would perform a lumbar decompression fusion L4-5 L5-S1. Risk benefits pros cons were again outlined in detail. We will plan for surgery in the a.m. She is will made n.p.o. after midnight. Admission and Anticipated Discharge Date Admission Date: June 17, 2021 Subjective Patient continues struggle with back and leg pain Physical Exam Physical Exam: Patient seen comfortable while in bed. She does exhibit breakaway weakness to detailed testing lower extremities. Results & Data ([facility]) Vital Signs (Past 12 Hours) Vital Signs Temp Pulse Resp BP Pulse Ox 06/19/21 15:46 36.4 C L 71 18 128/79 90 06/19/21 07:23 36.6 C 58 L 20 150/87 H 96
[2021-06-19] MEDS: ACETAMINOPHEN 325 MG TAB PO PRN (17:19)
[2021-06-19] MEDS: ATORVASTATIN 40 MG TAB PO SCH (21:58)
[2021-06-19] MEDS: CETIRIZINE HCL 10 MG TABLET PO SCH (21:59)
[2021-06-19] MEDS: ENALAPRIL MALEATE 10 MG TAB PO SCH (21:59)
[2021-06-19] MEDS ORDERED: Nursing to Pharmacy Communication SCH (22:45)
[2021-06-19] MEDS: LACTATED RINGER'S 1,000 ML IV SCH (23:54)
[2021-06-20] MEDS: INSULIN ASPART 100 UNITS/ML VIAL SC SCH ×5 (06:11→23:34)
[2021-06-20] MEDS: VERAPAMIL HCL 240 MG TABCR PO SCH (08:57)
[2021-06-20] MEDS: VENLAFAXINE HCL XR 75 MG CAPXR PO SCH (08:57)
[2021-06-20] MEDS: DOCUSATE SODIUM 100 MG CAP PO SCH ×2 (08:57→19:55)
[2021-06-20] MEDS: LIDOCAINE 5% 1 PATCH TD SCH (08:59)
[2021-06-20] MEDS: POLYETHYLENE (MIRALAX) 17 GM PACK PO SCH (09:01)
[2021-06-20] MEDS: LACTATED RINGER'S 1,000 ML IV SCH (11:56)
--- NOTE | 2021-06-20 13:13 | History & Physical Bridge Note ---
Date of Service June 20, 2021 History & Physical Bridge Note I have examined the patient, reviewed the History & Physical and in the interval since the performance of the History & Physical I have noted the following changes of clinical significance: no changes noted L4-S1 decompression fusion
[2021-06-20] MEDS ORDERED: BUPIVACAINE 0.5 % 5 MG/1 ML MPF 30ML VIAL ONE (13:27)
[2021-06-20] MEDS ORDERED: EPINEPHrine INJ 1 MG/ML AMP ONE (13:29)
[2021-06-20] MEDS ORDERED: PROPOFOL IV EMULSION 10 MG/ML 20 ML VIAL IV ONE (14:19)
[2021-06-20] MEDS ORDERED: ROCURONIUM BROMIDE 10 MG/ML 5 ML VIAL IV ONE (14:19)
[2021-06-20] MEDS ORDERED: GLYCOPYRROLATE 0.2 MG/ML VIAL IM ONE (14:19)
[2021-06-20] MEDS ORDERED: fentaNYL citrate 100 MCG/2 ML VIAL IV ONE (14:19)
[2021-06-20] MEDS ORDERED: DEXAMETHASONE SOD INJ 4 MG/ML VIAL IV ONE (14:19)
[2021-06-20] MEDS ORDERED: HYDROmorphone INJ 2 MG/ML SYR/VIAL IV ONE (14:19)
[2021-06-20] MEDS ORDERED: LIDOCAINE 2% 2 ML VIAL/AMP(20MG/ML) INFIL ONE (14:19)
[2021-06-20] MEDS ORDERED: ONDANSETRON INJ 2 MG/ML 2 ML VIAL IV ONE (14:19)
[2021-06-20] MEDS ORDERED: NEOSTIGMINE METHYLSULFATE 1 MG/ML 10ML VIAL IM ONE (14:19)
--- NOTE | 2021-06-20 14:23 | Anesthesiology Consultation ---
Date of Service June 20, 2021 Assessment & Plan Chart Review Chart Review: Acceptable Risk for Surgery Consults Requested none History Surgery Operation Date: 06/20/21 13:05 Proposed Procedures p L4-S1 Lumbar Decompression Fusion - Luciano Quintero DO Height/Weight Height: 5 ft 4 in Weight: 114 kg Allergies Allergy/AdvReac Type Severity Reaction Status Date / Time No Known Allergies Allergy Verified 03/20/21 14:27 Medications Home Medications Medication Instructions Recorded Confirmed Last Taken ascorbic acid (vitamin C) 500 mg 500 mg PO QAM 03/20/21 06/17/21 Unknown tablet (Vitamin C) atorvastatin 80 mg tablet 80 mg PO QPM 03/20/21 06/17/21 Unknown cinnamon bark 500 mg capsule 1,000 mg PO QPM 03/20/21 06/17/21 Unknown (Cinnamon) coQ10 (ubiquinol) 100 mg capsule 100 mg PO QAM 03/20/21 06/17/21 Unknown diclofenac sodium 50 mg 50 mg PO QAM 03/20/21 06/17/21 Unknown tablet,delayed release ferrous sulfate 325 mg (65 mg 325 mg PO QAM 03/20/21 06/17/21 Unknown iron) tablet (iron) hydrochlorothiazide 25 mg tablet 25 mg PO QAM 03/20/21 06/17/21 Unknown levocetirizine 5 mg tablet 5 mg PO QPM 03/20/21 06/17/21 Unknown lutein 20 mg capsule 20 mg PO QAM 03/20/21 06/17/21 Unknown metformin 500 mg tablet 500 mg PO BID 03/20/21 06/17/21 Unknown multivitamin 1 tab PO QAM 03/20/21 06/17/21 Unknown potassium chloride 10 mEq 10 meq PO QAM 03/20/21 06/17/21 Unknown capsule,extended release quinapril 40 mg tablet 40 mg PO QPM 03/20/21 06/17/21 Unknown venlafaxine 75 mg tablet 75 mg PO QAM 03/20/21 06/17/21 Unknown verapamil 240 mg tablet,extended 240 mg PO QAM 03/20/21 06/17/21 Unknown release aspirin 81 mg tablet,delayed 81 mg PO DAILY 06/17/21 06/17/21 Unknown release calcium carb-Ca gluc 500 mg 1 tab PO QAM 06/17/21 06/17/21 Unknown calcium-magnesium ox-Mg gluc 250 mg tablet (Calcium Magnesium) omega [id number]-pfg-fish oil 1,000 mg 1 cap PO BID 06/17/21 06/17/21 Unknown (120 mg-180 mg) capsule (Fish Oil) Active Medications Generic Name Dose Route Start Last Admin Trade Name Freq PRN Reason Stop Dose Admin Acetaminophen 650 mg 06/17/21 23:34 06/19/21 17:19 Acetaminophen 325 Mg Tab PO 07/17/21 23:33 650 mg Q4H PRN Administration pain/fever Atorvastatin Calcium 80 mg 06/18/21 21:00 06/19/21 21:58 Atorvastatin 40 Mg Tab PO 07/18/21 20:59 80 mg QPM JENNIFER Administration Cetirizine HCl 10 mg 06/18/21 21:00 06/19/21 21:59 Cetirizine Hcl 10 Mg Tablet PO 07/18/21 20:59 10 mg QPM JENNIFER Administration Docusate Sodium 100 mg 06/18/21 21:00 06/20/21 08:57 Docusate Sodium 100 Mg Cap PO 07/18/21 20:59 100 mg BID JENNIFER Administration Enalapril Maleate 40 mg 06/18/21 21:00 06/19/21 21:59 Enalapril Maleate 10 Mg Tab PO 07/18/21 20:59 40 mg QPM JENNIFER Administration Hydrochlorothiazide 25 mg 06/18/21 09:00 06/19/21 09:43 Hydrochlorothiazide 25 Mg Tab PO 07/18/21 08:59 25 mg QAM JENNIFER Administration Lactated Ringer's 1,000 mls @ 80 mls/hr 06/19/21 23:59 06/20/21 11:56 Lr IV 07/19/21 23:58 80 mls/hr .[id number] JENNIFER Administration Insulin Aspart 0 units 06/20/21 06:00 06/20/21 12:07 Insulin Aspart 100 Units/Ml Vial SC 07/20/21 05:59 Not Given Q6 JENNIFER Lidocaine 1 patch 06/18/21 09:00 06/20/21 08:59 Lidocaine 5% 1 Patch TD 07/18/21 08:59 1 patch QAM JENNIFER Administration Miscellaneous 1 ea 06/18/21 21:00 06/19/21 21:59 Remove Lidoderm Patch N/A 07/18/21 20:59 1 ea DAILY@2100 JENNIFER Administration Morphine Sulfate 2 mg 06/17/21 23:34 06/18/21 08:57 Morphine Sulfate 2 Mg/Ml Carp IV 07/01/21 23:33 2 mg Q3H PRN Administration Pain (1,2,3,4,5) & Pre PT Polyethylene Glycol 17 gm 06/18/21 09:00 06/20/21 09:01 Polyethylene (Miralax) 17 Gm Pack PO 07/18/21 08:59 Not Given DAILY JENNIFER Venlafaxine HCl 75 mg 06/18/21 09:00 06/20/21 08:57 Venlafaxine Hcl Xr 75 Mg Capxr PO 07/18/21 08:59 75 mg QAM JENNIFER Administration Verapamil HCl 240 mg 06/18/21 09:00 06/20/21 08:57 Verapamil Hcl 240 Mg Tabcr PO 07/18/21 08:59 240 mg QAM JENNIFER Administration NPO Date Last Intake of Fluids: 06/19/21 Time Last Intake of Fluids: 23:00 Last Intake of Fluids Comment: sip of water with med today Date Last Intake of Solids: 06/19/21 Time Last Intake of Solids: 20:00 Past Medical History Medical History Anemia Deep vein thrombosis 15+ years ago, on AC for short period of time, unknown etiology Diabetes mellitus, type 2 NIDDM Hx of migraines Hyperlipidemia Hypertension Lyme disease s/p treatment 01/2021 Macular degeneration Osteoarthritis Sleep apnea CPAP Spinal stenosis Past Family History Family History Mother Family history of diabetes mellitus Brother Family history of diabetes mellitus Sister No problems noted. Sister Family history of diabetes mellitus Father Family hx of colon cancer Other No family history of adverse response to anesthesia Past Surgical History Surgical History H/O eye surgery R/L (laser surgery) History of colonoscopy History of hysterectomy History of tonsillectomy History of tooth extraction History of total knee replacement R/L Social History Smoking Status: Never smoker Hx Alcohol Use: No alcohol intake frequency: holidays/special occasions only Hx Substance Use: No substance use type: does not use Physical Exam Vital Signs Last Vital Signs Temp 36.5 C 06/20/21 07:26 Pulse 61 06/20/21 07:26 Resp 16 06/20/21 07:26 BP 153/91 H 06/20/21 07:26 Pulse Ox 92 06/20/21 07:26 Testing Laboratory Results 06/17/21 18:39 06/17/21 18:39 PT 10.4 Seconds (9.0-12.0) 06/17/21 18:39 INR 1.0 (0.9-1.1) 06/17/21 18:39 Hemoglobin A1c 7.1 % (4.5-5.6) H 06/17/21 18:39 Blood Type O Positive 06/19/21 15:39 Antibody Screen NEGATIVE 06/19/21 15:39 06/20/21 06/20/21 12:05 06:10 POC Glucose 129 H 122 H
[2021-06-20] MEDS ORDERED: HYDROmorphone INJ 2 MG/ML SYR/VIAL IV PRN (14:24)
[2021-06-20] MEDS ORDERED: ATROPINE SULFATE 0.1 MG/ML 10ML SYR IV PRN (14:24)
[2021-06-20] MEDS ORDERED: ePHEDrine sulfate 50 MG/ML AMP IV PRN (14:24)
[2021-06-20] MEDS ORDERED: fentaNYL citrate 100 MCG/2 ML VIAL IV PRN (14:24)
[2021-06-20] MEDS ORDERED: ceFAZolin 2000MG 2,000 MG/15 ML SYR IV ONE (15:06)
[2021-06-20] MEDS ORDERED: FLOSEAL HEMOSTATIC MATRIX 10ML TOP ONE (15:10)
--- NOTE | 2021-06-20 16:07 | Operative Report ---
Post Operative Report Pre & Post Diagnosis Operation Date: 06/20/21 13:05 Pre-Op Diagnosis: Neurogenic claudication due to lumbar spinal stenosis Lumbar spondylolisthesis L4-5 L5-S1 Post-Op Diagnosis: I identified the patient and participated in the time-out.: Yes Procedure Operation Date: 06/20/21 13:05 Actual Procedures #1 lumbar decompression with bilateral medial facetectomies and foraminotomies L3-4, L4-5 and L5-S1. #2 posterior spinal fusion L4-5 L5-S1. #3 placed posterior instrumentation L4-5 L5-S1. #4 interbody fusion L4-5 L5-S1. #5 placement peek cage 11 x 26 mm at L4-5 and L5-S1. #6 placement locally harvested morselized autograft in the posterior gutters. #7 placement infuse collagen sponge, master graft in the posterior lateral gutters and I factor interbody space. Surgeon Luciano Quintero, Key Cutter Cydney Armstrong Estimated Blood Loss 150 Findings Consistent with Post-Op Diagnosis The patient is 5 foot 4 inches tall weighing 114 kg with a BMI in excess of 43. Patient's body habitus did contribute to significant technical difficulty requiring her deepest retractors and longest instruments in order to perform her procedure. This had at least 50% increase to the operative time. Specimens None Indications This is a 66-year-old female the presents with significant decline in status with leg pain and weakness is here for the above-mentioned procedure. Description of Procedure Patient was met with identified informed consent obtained. Patient was then taken to the operative suite underwent an patient placed in a prone position on the Ivan table atop the Angel frame. All bony prominences well-padded eyes inspected to ensure no external pressure placed upon them. This point the lumbar spine was prepped and draped in a sterile fashion. Sharp dissection with the assistance of Bovie cautery was performed down to and exposing the lamina and transverse processes of L4-L5 and sacral ala bilaterally. From caudal to cephalad fashion complete laminectomy of L5 L4 partial laminectomy of L3 was performed including bilateral medial facetectomies and foraminotomies addressing severe spinal stenosis. Pedicle screws were then placed in L4-L5 and S1 levels bilaterally with assistance of fluoroscopy and appropriately sized joy placed. By way of a transforaminal portion left complete discectomy of L5-S1 was performed endplates curetted to subcortical bleeding bone and 11 x 22 mm peek cage filled with I factor tapped in position. Then proceeded L4-L5 and again by way of a transforaminal portion left complete discectomy was performed endplates curetted to subcortical being bone and again 11 x 22 mm peek cage filled with I factor tapped in position. The rods were then compressed locked in final position bilaterally. The transverse processes of L4-L5 and S1 levels burred to subcortically bone. Infuse collagen sponge master graft local autograft was placed in the posterior gutters. 15 round MONTSE drain inserted. The incision was then closed with 1 Vicryl in the fascia 2-0 Vicryl subcutaneously and 4 Monocryl for final skin closure. Steri-Strip sterile dressings placed. Patient will continue to take stable addition. Please note spinal cord monitoring was utilized at the procedure no changes noted. Lastly Cydney Armstrong was present at the entire surgery while the patient positioning complex portions of the surgery and final skin closure. I attest to the content of the Intraoperative Record and any orders documented therein. Any exceptions are noted below.
--- NOTE | 2021-06-20 16:34 | Fluoroscopy Report ---
FL lumbar spine 2-3V CLINICAL HISTORY: L4-S1 D/F/I TECHNIQUE: 2 views were obtained with the C-arm in the OR with the above procedure. Total fluoroscopy time was 12.0 seconds. Total skin dose was 16.34 mGy. Comparison: Comparison is made to MRI lumbar spine 06/18/2021 FINDINGS/IMPRESSION: Multiple intraoperative images were obtained of discectomy and fusion. Please correlate with intraoperative fluoroscopy and operative report. ACT 112: Negative or not required by law. Electronically signed by: Adolfo Vitale M.D. 06/20/2021 4:33 PM
--- NOTE | 2021-06-20 16:59 | Anesthesiology Progress Note ---
Date of Service June 20, 2021 Anesthesia Post Procedure Vital Signs Vital Signs: Temp Pulse Pulse Resp BP Pulse Ox 06/20/21 16:46 71 14 126/63 93 06/20/21 16:36 77 16 118/68 97 06/20/21 16:26 75 16 136/79 97 06/20/21 16:18 36.7 C 79 12 141/87 H 100 06/20/21 07:26 36.5 C 61 16 153/91 H 92 06/19/21 23:27 36.8 C 70 18 161/86 H 95 06/19/21 21:59 133/83 Pain Intensity Lower Back: Pain Intensity: 7 Transfer of Care Handoff Completed per policy Notes Mental Status: alert / awake / arousable and participated in evaluation Patient Amnestic to Procedure: Yes Nausea / Vomiting: adequately controlled Pain: adequately controlled Airway Patency, RR, SpO2: stable & adequate BP & HR: stable & adequate Hydration State: stable & adequate Anesthetic Complications: no major complications apparent
[2021-06-20] MEDS ORDERED: Nursing to Pharmacy Communication SCH (19:15)
--- NOTE | 2021-06-20 19:36 | Hospitalist Progress Note ---
Date of Service June 20, 2021 Assessment & Plan (1) Neurogenic claudication due to lumbar spinal stenosis: Plan: 66 yo F with hx neurogenic claudication due to lumbar spinal stenosis admitted for pain control and surgical intervention continue Pain control Now status post lumbar decompression and fusion on 06/20 Continue LR at 100 mL/h postop -Follow CBC and BMP in the morning - continue morphine 2 mg IV Q3H prn - Tylenol 650 Q6h prn -continue oxycodone 5mg po q4h prn mod-severe pain -Postoperative management as per orthopedic spine surgery (2) Inadequate pain control: Plan: as above (3) COVID-19: Plan: tested positive on 05/29 and had sinus congestion and headache for a few days, received Regeneron on 06/02 and had improvement COVID test here still positive Now asymptomatic and >20 days since initial positive test--> discussed with Infection Control--> removed COVID precautions (4) Hypertension: Plan: BPs controlled to mildly high - continuing HCTZ, quinapril but hold both for at least 24 hours postoperatively - continue verapamil (5) Sleep apnea: Plan: continue home CPAP qhs (6) Deep vein thrombosis: Plan: h/o such in 2010, unprovoked, treated with AC for several months -continue on SCDs, encourage mobilization as able can't use Lovenox in setting of spine surgery (7) Hyperlipidemia: Plan: continue statin (8) Diabetes mellitus, type 2: Plan: - holding metformin - Novolog SSI - A1c 7.1%, well controlled -ADA diet Plan: DVT proph- SCDs Dispo-continued stay Admission and Anticipated Discharge Date Admission Date: June 17, 2021 Subjective Patient just returned from the operating room and has 7-10 pain in the lower back but no pain in the legs. She is very drowsy. Denies nausea and is feeling hungry. No chest pain or shortness of breath. Review of Systems Review of Systems: All systems reviewed & are unremarkable except as noted in HPI & below Physical Exam Constitutional: WD/WN, vitals as above Neck: trachea midline, no thyromegaly Respiratory: normal respiratory effort, lungs clear to auscultation Cardiovascular: RRR, no murmur, no edema Chest (Breasts): Chest: normal inspection of chest Gastrointestinal (Abdomen): normal bowel sounds, soft, nontender, no hepatosplenomegaly Musculoskeletal: Extremities: extremities normal to inspection; no cyanosis and no clubbing Skin: no rashes, warm and dry Neurologic: moves all extremities and awake; no focal motor deficits Psychiatric: A+Ox3, euthymic affect Lymphatic: no lymphedema Results & Data Results & Data ([facility]) Vital Signs (Past 12 Hours) Vital Signs Temp Pulse Pulse Resp BP Pulse Ox 06/20/21 18:37 36.5 C 94 H 16 102/65 90 06/20/21 18:15 85 16 96/66 L 93 06/20/21 18:00 79 19 103/54 L 93 06/20/21 17:50 77 17 91/61 L 96 06/20/21 17:35 76 18 103/63 94 06/20/21 17:25 73 18 110/58 L 92 06/20/21 17:15 36.0 C L 75 14 115/62 94 06/20/21 17:05 71 14 111/65 94 06/20/21 16:56 69 17 116/61 95 06/20/21 16:46 71 14 126/63 93 06/20/21 16:36 77 16 118/68 97 06/20/21 16:26 75 16 136/79 97 06/20/21 16:18 36.7 C 79 12 141/87 H 100 PG Care Time/CCT Total # of Minutes Spent Total Time Spent with Patient: Total time spent is greater than 50% in coordination of care (as documented) at patient's floor/unit and/or counseling patient: Coding Level of Care Code 80766 Subseq Hosp Care Lvl 2 Diagnoses Neurogenic claudication due to lumbar spinal stenosis M48.062 Inadequate pain control R52 COVID-19 U07.1 Hypertension I10 Sleep apnea G47.30 Deep vein thrombosis I82.409 Hyperlipidemia E78.5 Diabetes mellitus, type 2 E11.9
[2021-06-20] MEDS: MoRPHine SULFATE 2 MG/ML CARP IV PRN (19:54)
[2021-06-20] MEDS: CETIRIZINE HCL 10 MG TABLET PO SCH (19:55)
[2021-06-20] MEDS: ATORVASTATIN 40 MG TAB PO SCH (19:56)
[2021-06-21] MEDS: LACTATED RINGER'S 1,000 ML IV SCH ×2 (01:05→09:58)
[2021-06-21] MEDS: MoRPHine SULFATE 2 MG/ML CARP IV PRN ×2 (02:21→20:28)
--- NOTE | 2021-06-21 08:49 | Orthopedic Progress Note ---
Date of Service June 21, 2021 Assessment & Plan (1) Lumbar radiculopathy: Plan: At this time we will continue physical therapy monitor MONTSE output hopefully discharge home in the next few days. Admission and Anticipated Discharge Date Admission Date: June 17, 2021 Subjective Back pain is controlled leg symptoms improved Physical Exam Physical Exam: Patient is in bed. She is comfortable. Is good strength testing. Results & Data ([facility]) Vital Signs (Past 12 Hours) Vital Signs Temp Pulse Resp BP Pulse Ox 06/21/21 06:13 36.5 C 75 16 108/67 97 06/21/21 01:56 36.6 C 83 16 99/63 L 94 06/20/21 21:40 36.5 C 94 H 18 99/59 L 93
[2021-06-21 09:08] LABS: Basophils # (auto) 0.01 K/uL (0-0.2); Basophils % (auto) 0.1 %; Immature Granulocytes # (auto) 0.03 K/uL (0.00-0.02); Immature Granulocytes % (auto) 0.2 %; Lymphocytes # (auto) 1.32 K/uL (1.2-3.4); Lymphocytes % (auto) 9.4 %; Mean Corpuscular Hemoglobin 30.6 pg (25-34); Mean Corpuscular Hgb Conc 33.3 g/dL (32-36); Mean Corpuscular Volume 91.9 fL (80-100); Monocytes # (auto) 1.48 K/uL (0.11-0.59); Monocytes % (auto) 10.5 %; Neutrophils # (auto) 11.27 K/uL (1.4-6.5); Neutrophils % (auto) 79.8 %; Platelet Count 277 K/uL (130-400); RDW Coefficient of Variation 12.8 % (11.5-14.5); RDW Standard Deviation 43.3 fL (36.4-46.3); Red Blood Count 3.59 M/uL (4.2-5.4); White Blood Count 14.11 K/uL (4.8-10.8)
[2021-06-21] MEDS: DOCUSATE SODIUM 100 MG CAP PO SCH ×2 (09:40→20:27)
[2021-06-21] MEDS: VENLAFAXINE HCL XR 75 MG CAPXR PO SCH (09:41)
[2021-06-21] MEDS: VERAPAMIL HCL 240 MG TABCR PO SCH (09:41)
[2021-06-21] MEDS: LIDOCAINE 5% 1 PATCH TD SCH (09:41)
[2021-06-21] MEDS: POLYETHYLENE (MIRALAX) 17 GM PACK PO SCH (09:41)
[2021-06-21] MEDS: dexAMETHasone 8 MG in SYRINGE 0 ML IV SCH (09:49)
[2021-06-21] MEDS: INSULIN ASPART 100 UNITS/ML VIAL SC SCH ×4 (09:50→20:54)
[2021-06-21 09:54] LABS: BUN Creatinine Ratio 25.1 (10-20); Calcium 8.9 mg/dl (8.5-10.1); Creatinine Clr Calc Pharmacy 80.5 ml/min; Est GFR (African American) 83.4 ml/min; Est GFR (Non-African American) 71.9 ml/min; Potassium 4.1 mmol/L (3.5-5.1)
[2021-06-21] MEDS: oxyCODONE HCL IR 5 MG TAB (IMMEDIATE RELEASE) PO PRN (12:55)
--- NOTE | 2021-06-21 15:21 | Hospitalist Progress Note ---
Date of Service June 21, 2021 Assessment & Plan (1) Neurogenic claudication due to lumbar spinal stenosis: Plan: 66 yo F with hx neurogenic claudication due to lumbar spinal stenosis admitted for pain control and surgical intervention continue Pain control Now status post lumbar decompression and fusion on 06/20 Hgb only mild drop, BMP stable MONTSE drain in place dc IVFs -Follow CBC and BMP in the morning - continue morphine 2 mg IV Q3H prn - Tylenol 650 Q6h prn -continue oxycodone 5mg po q4h prn mod-severe pain -Postoperative management as per orthopedic spine surgery -ordered PT/OT -keep Gutierrez till tomorrow once can get OOB with PT -continue Decadron 8mg IV daily as per Ortho (2) COVID-19: Plan: tested positive on 05/29 and had sinus congestion and headache for a few days, received Regeneron on 06/02 and had improvement COVID test here still positive Now asymptomatic and >20 days since initial positive test--> discussed with Infection Control--> removed COVID precautions (3) Hypertension: Plan: BPs soft today - hold HCTZ, quinapril - continue verapamil and add hold parameters (4) Sleep apnea: Plan: continue home CPAP qhs (5) Deep vein thrombosis: Plan: h/o such in 2010, unprovoked, treated with AC for several months -continue on SCDs, encourage mobilization as able can't use Lovenox in setting of spine surgery (6) Hyperlipidemia: Plan: continue statin (7) Diabetes mellitus, type 2: Plan: - holding metformin - Novolog SSI - A1c 7.1%, well controlled -ADA diet Plan: DVT proph- SCDs Dispo-continued stay Admission and Anticipated Discharge Date Admission Date: June 17, 2021 Subjective Pt has some lower back pain but is controlled. No pain down legs. She denies nausea,CP,SOB. Has not been OOB with PT but it seems PT never got ordered. Review of Systems Review of Systems: All systems reviewed & are unremarkable except as noted in HPI & below Physical Exam Constitutional: WD/WN, vitals as above Neck: trachea midline, no thyromegaly Respiratory: normal respiratory effort, lungs clear to auscultation Cardiovascular: RRR, no murmur, no edema Chest (Breasts): Chest: normal inspection of chest Gastrointestinal (Abdomen): normal bowel sounds, soft, nontender, no hepatosplenomegaly Musculoskeletal: Extremities: extremities normal to inspection; no cyanosis and no clubbing Skin: no rashes, warm and dry Neurologic: moves all extremities and awake; no focal motor deficits Psychiatric: A+Ox3, euthymic affect Lymphatic: no lymphedema Results & Data Results & Data ([facility]) Vital Signs (Past 12 Hours) Vital Signs Temp Pulse Resp BP Pulse Ox 06/21/21 06:13 36.5 C 75 16 108/67 97 Laboratory Results 06/21/21 08:26 06/21/21 08:26 PG Care Time/CCT Total # of Minutes Spent Total Time Spent with Patient: Total time spent is greater than 50% in coordination of care (as documented) at patient's floor/unit and/or counseling patient: Coding Level of Care Code 53599 Subseq Hosp Care Lvl 2 Diagnoses Neurogenic claudication due to lumbar spinal stenosis M48.062 COVID-19 U07.1 Hypertension I10 Sleep apnea G47.30 Deep vein thrombosis I82.409 Hyperlipidemia E78.5 Diabetes mellitus, type 2 E11.9
[2021-06-21] MEDS: ATORVASTATIN 40 MG TAB PO SCH (20:27)
[2021-06-21] MEDS: CETIRIZINE HCL 10 MG TABLET PO SCH (20:28)
[2021-06-22] MEDS: MoRPHine SULFATE 2 MG/ML CARP IV PRN (03:23)
[2021-06-22] MEDS: oxyCODONE HCL IR 5 MG TAB (IMMEDIATE RELEASE) PO PRN ×3 (05:41→19:29)
[2021-06-22 06:16] LABS: Basophils # (auto) 0.01 K/uL (0-0.2); Basophils % (auto) 0.1 %; Hematocrit (blood only) 31.1 % (37-47); Hemoglobin 10.2 g/dL (12.0-16.0); Immature Granulocytes # (auto) 0.03 K/uL (0.00-0.02); Immature Granulocytes % (auto) 0.2 %; Lymphocytes # (auto) 1.62 K/uL (1.2-3.4); Lymphocytes % (auto) 11.4 %; Mean Corpuscular Hemoglobin 29.8 pg (25-34); Mean Corpuscular Hgb Conc 32.8 g/dL (32-36); Mean Corpuscular Volume 90.9 fL (80-100); Mean Platelet Volume 11.1 fL (7.4-10.4); Monocytes # (auto) 1.33 K/uL (0.11-0.59); Monocytes % (auto) 9.3 %; Neutrophils # (auto) 11.24 K/uL (1.4-6.5); Platelet Count 249 K/uL (130-400); RDW Standard Deviation 42.8 fL (36.4-46.3); Red Blood Count 3.42 M/uL (4.2-5.4); White Blood Count 14.23 K/uL (4.8-10.8)
[2021-06-22 06:55] LABS: BUN Creatinine Ratio 26.8 (10-20); Creatinine Clr Calc Pharmacy 83.4 ml/min; Est GFR (African American) 87.1 ml/min; Est GFR (Non-African American) 75.2 ml/min; Potassium 4.1 mmol/L (3.5-5.1)
[2021-06-22] MEDS: VENLAFAXINE HCL XR 75 MG CAPXR PO SCH (09:02)
[2021-06-22] MEDS: DOCUSATE SODIUM 100 MG CAP PO SCH ×2 (09:02→19:29)
[2021-06-22] MEDS: dexAMETHasone 8 MG in SYRINGE 0 ML IV SCH (09:02)
[2021-06-22] MEDS: VERAPAMIL HCL 240 MG TABCR PO SCH (09:02)
[2021-06-22] MEDS: POLYETHYLENE (MIRALAX) 17 GM PACK PO SCH (09:02)
[2021-06-22] MEDS: LIDOCAINE 5% 1 PATCH TD SCH (09:02)
[2021-06-22] MEDS: INSULIN ASPART 100 UNITS/ML VIAL SC SCH ×4 (09:03→20:45)
--- NOTE | 2021-06-22 09:58 | Orthopedic Progress Note ---
Date of Service June 22, 2021 Assessment & Plan (1) Lumbar radiculopathy: Plan: Patient is tolerating physical therapy. MONTSE drain decreasing probably. He will continue with therapy and his space discharge home in the next few days. Admission and Anticipated Discharge Date Admission Date: June 17, 2021 Subjective Patient states her back pain is controlled leg symptoms markedly improved Physical Exam Physical Exam: On exam she is in the chair at the bedside. She appears quite comfortable. Is good strength testing. Results & Data ([facility]) Vital Signs (Past 12 Hours) Vital Signs Temp Pulse Resp BP Pulse Ox 06/22/21 07:49 36.3 C L 70 18 124/72 95 06/21/21 22:32 94 06/21/21 22:31 36.5 C 76 16 115/65 83 L
--- NOTE | 2021-06-22 13:43 | Hospitalist Progress Note ---
Date of Service June 22, 2021 Assessment & Plan (1) Neurogenic claudication due to lumbar spinal stenosis: Plan: 66 yo F with hx neurogenic claudication due to lumbar spinal stenosis admitted for pain control and surgical intervention Improved radicular symptoms now s/p surgery continue Pain control Now status post lumbar decompression and fusion on 06/20 Hgb only mild drop, BMP stable MONTSE drain in place but drainage decreasing -Follow CBC and BMP in the morning - continue morphine 2 mg IV Q3H prn - Tylenol 650 Q6h prn -continue oxycodone 5mg po q4h prn mod-severe pain -Postoperative management as per orthopedic spine surgery -ordered PT/OT-recommend return to home -continue Decadron 8mg IV daily as per Ortho (2) COVID-19: Plan: tested positive on 05/29 and had sinus congestion and headache for a few days, received Regeneron on 06/02 and had improvement COVID test here still positive Now asymptomatic and >20 days since initial positive test--> discussed with Infection Control--> removed COVID precautions (3) Hypertension: Plan: BPs improved today, not as soft - continue to hold HCTZ, quinapril - continue verapamil w/ hold parameters (4) Sleep apnea: Plan: continue home CPAP qhs (5) Deep vein thrombosis: Plan: h/o such in 2010, unprovoked, treated with AC for several months -continue on SCDs, encourage mobilization as able can't use Lovenox in setting of spine surgery (6) Hyperlipidemia: Plan: continue statin (7) Diabetes mellitus, type 2: Plan: - holding metformin - Novolog SSI - A1c 7.1%, well controlled -ADA diet Plan: DVT proph- SCDs Dispo-continued stay, but likely home on Thursday as per Ortho Admission and Anticipated Discharge Date Admission Date: June 17, 2021 Subjective Pt having some pain in lower back and left buttock relieved with oxycodone. Was OOB and ambulating with PT. Is OOB to chair all morning, getting sore. Needed O2 last evening but now on RA at rest once out of bed. Denies SOB or CP. no nausea, is eating well. Review of Systems Review of Systems: All systems reviewed & are unremarkable except as noted in HPI & below Physical Exam Constitutional: WD/WN, vitals as above Neck: trachea midline, no thyromegaly Respiratory: normal respiratory effort, lungs clear to auscultation Cardiovascular: RRR, no murmur, no edema Chest (Breasts): Chest: normal inspection of chest Gastrointestinal (Abdomen): normal bowel sounds, soft, nontender, no hepatosplenomegaly Musculoskeletal: Extremities: extremities normal to inspection; no cyanosis and no clubbing Skin: no rashes, warm and dry Neurologic: moves all extremities and awake; no focal motor deficits Psychiatric: A+Ox3, euthymic affect Lymphatic: no lymphedema Results & Data Results & Data ([facility]) Vital Signs (Past 12 Hours) Vital Signs Temp Pulse Resp BP Pulse Ox 06/22/21 07:49 36.3 C L 70 18 124/72 95 Laboratory Results 06/22/21 06/22/21 06/22/21 Range/Units 11:56 08:08 05:38 WBC (4.8-10.8) K/uL RBC (4.2-5.4) M/uL Hgb (12.0-16.0) g/dL Hct (37-47) % MCV (80-100) fL MCH (25-34) pg MCHC (32-36) g/dL RDW Std Deviation (36.4-46.3) fL RDW Coeff of Mone (11.5-14.5) % Plt Count (130-400) K/uL MPV (7.4-10.4) fL Immature Gran % (Auto) % Neut % (Auto) % Lymph % (Auto) % [place] % (Auto) % Eos % (Auto) % Baso % (Auto) % Neut # (Auto) (1.4-6.5) K/uL Lymph # (Auto) (1.2-3.4) K/uL [place] # (Auto) (0.11-0.59) K/uL Eos # (Auto) (0-0.5) K/uL Baso # (Auto) (0-0.2) K/uL Immature Gran # (Auto) (0.00-0.02) K/uL Sodium 139 (136-145) mmol/L Potassium 4.1 (3.5-5.1) mmol/L Chloride 105 (98-107) mmol/L Carbon Dioxide 29 (21-32) mmol/L Anion Gap 5.0 (3-11) BUN 22 H (7-18) mg/dl Creatinine 0.81 (0.6-1.2) mg/dl Est Cr Clr Drug Dosing 83.4 ml/min Est GFR ( Amer) 87.1 ml/min Est GFR (Non-Af Amer) 75.2 ml/min BUN/Creatinine Ratio 26.8 H (10-20) Glucose 154 H (70-99) mg/dl POC Glucose 161 H 147 H (70-99) mg/dl Calcium 9.0 (8.5-10.1) mg/dl 06/22/21 06/21/21 06/21/21 Range/Units 05:38 20:51 17:35 WBC 14.23 H (4.8-10.8) K/uL RBC 3.42 L (4.2-5.4) M/uL Hgb 10.2 L (12.0-16.0) g/dL Hct 31.1 L (37-47) % MCV 90.9 (80-100) fL MCH 29.8 (25-34) pg MCHC 32.8 (32-36) g/dL RDW Std Deviation 42.8 (36.4-46.3) fL RDW Coeff of Mone 13.0 (11.5-14.5) % Plt Count 249 (130-400) K/uL MPV 11.1 H (7.4-10.4) fL Immature Gran % (Auto) 0.2 % Neut % (Auto) 79.0 % Lymph % (Auto) 11.4 % [place] % (Auto) 9.3 % Eos % (Auto) 0.0 % Baso % (Auto) 0.1 % Neut # (Auto) 11.24 H (1.4-6.5) K/uL Lymph # (Auto) 1.62 (1.2-3.4) K/uL [place] # (Auto) 1.33 H (0.11-0.59) K/uL Eos # (Auto) 0.00 (0-0.5) K/uL Baso # (Auto) 0.01 (0-0.2) K/uL Immature Gran # (Auto) 0.03 H (0.00-0.02) K/uL Sodium (136-145) mmol/L Potassium (3.5-5.1) mmol/L Chloride (98-107) mmol/L Carbon Dioxide (21-32) mmol/L Anion Gap (3-11) BUN (7-18) mg/dl Creatinine (0.6-1.2) mg/dl Est Cr Clr Drug Dosing ml/min Est GFR ( Amer) ml/min Est GFR (Non-Af Amer) ml/min BUN/Creatinine Ratio (10-20) Glucose (70-99) mg/dl POC Glucose 180 H 191 H (70-99) mg/dl Calcium (8.5-10.1) mg/dl PG Care Time/CCT Total # of Minutes Spent Total Time Spent with Patient: Total time spent is greater than 50% in coordination of care (as documented) at patient's floor/unit and/or counseling patient: Coding Level of Care Code 16336 Subseq Hosp Care Lvl 2 Diagnoses Neurogenic claudication due to lumbar spinal stenosis M48.062 COVID-19 U07.1 Hypertension I10 Sleep apnea G47.30 Deep vein thrombosis I82.409 Hyperlipidemia E78.5 Diabetes mellitus, type 2 E11.9
[2021-06-22] MEDS: CETIRIZINE HCL 10 MG TABLET PO SCH (19:29)
[2021-06-22] MEDS: ATORVASTATIN 40 MG TAB PO SCH (19:29)
[2021-06-23 06:23] LABS: Basophils # (auto) 0.01 K/uL (0-0.2); Basophils % (auto) 0.1 %; Hematocrit (blood only) 29.5 % (37-47); Hemoglobin 9.7 g/dL (12.0-16.0); Immature Granulocytes # (auto) 0.05 K/uL (0.00-0.02); Immature Granulocytes % (auto) 0.4 %; Lymphocytes # (auto) 2.18 K/uL (1.2-3.4); Lymphocytes % (auto) 15.7 %; Mean Corpuscular Hemoglobin 29.9 pg (25-34); Mean Corpuscular Hgb Conc 32.9 g/dL (32-36); Mean Platelet Volume 11.2 fL (7.4-10.4); Monocytes # (auto) 1.61 K/uL (0.11-0.59); Monocytes % (auto) 11.6 %; Neutrophils # (auto) 10.05 K/uL (1.4-6.5); Neutrophils % (auto) 72.2 %; Platelet Count 249 K/uL (130-400); RDW Coefficient of Variation 12.9 % (11.5-14.5); RDW Standard Deviation 43.6 fL (36.4-46.3); Red Blood Count 3.24 M/uL (4.2-5.4)
[2021-06-23 06:55] LABS: BUN Creatinine Ratio 34.1 (10-20); Creatinine Clr Calc Pharmacy 91.3 ml/min; Est GFR (African American) 97.2 ml/min; Est GFR (Non-African American) 83.8 ml/min; Potassium 3.9 mmol/L (3.5-5.1)
[2021-06-23] MEDS: DOCUSATE SODIUM 100 MG CAP PO SCH ×2 (08:28→22:20)
[2021-06-23] MEDS: VERAPAMIL HCL 240 MG TABCR PO SCH (08:28)
[2021-06-23] MEDS: VENLAFAXINE HCL XR 75 MG CAPXR PO SCH (08:28)
[2021-06-23] MEDS: POLYETHYLENE (MIRALAX) 17 GM PACK PO SCH (08:28)
[2021-06-23] MEDS: dexAMETHasone 8 MG in SYRINGE 0 ML IV SCH (08:28)
[2021-06-23] MEDS: LIDOCAINE 5% 1 PATCH TD SCH (08:28)
[2021-06-23] MEDS: INSULIN ASPART 100 UNITS/ML VIAL SC SCH ×4 (09:13→20:32)
[2021-06-23] MEDS: oxyCODONE HCL IR 5 MG TAB (IMMEDIATE RELEASE) PO PRN ×3 (09:17→22:19)
--- NOTE | 2021-06-23 10:49 | Orthopedic Progress Note ---
Date of Service June 23, 2021 Assessment & Plan (1) Lumbar radiculopathy: Plan: At this time we will continue physical therapy monitor MONTSE output anticipate discharge home tomorrow. Admission and Anticipated Discharge Date Admission Date: June 17, 2021 Subjective Patient states her back pain is controlled leg symptoms markedly improved. She is ambulating much better. Physical Exam Physical Exam: On exam she is in the chair at the bedside has good strength testing. Appears comfortable. Results & Data ([facility]) Vital Signs (Past 12 Hours) Vital Signs Temp Pulse Resp BP Pulse Ox 06/23/21 07:16 35.8 C L 68 20 138/81 94 06/22/21 23:00 36.8 C 74 20 146/82 H 92
--- NOTE | 2021-06-23 14:31 | Hospitalist Progress Note ---
Date of Service June 23, 2021 Assessment & Plan (1) Neurogenic claudication due to lumbar spinal stenosis: Plan: 66 yo F with hx neurogenic claudication due to lumbar spinal stenosis admitted for pain control and surgical intervention Improved radicular symptoms now s/p surgery continue Pain control Now status post lumbar decompression and fusion on 06/20 Hgb only mild drop, BMP stable MONTSE drain in place but drainage decreasing, likely removing prior to discharge on Thursday - continue morphine 2 mg IV Q3H prn - Tylenol 650 Q6h prn -continue oxycodone 5mg po q4h prn mod-severe pain -Postoperative management as per orthopedic spine surgery -ordered PT/OT-recommend return to home -continue Decadron 8mg IV daily as per Ortho -likely going home tomorrow (2) COVID-19: Plan: tested positive on 05/29 and had sinus congestion and headache for a few days, received Regeneron on 06/02 and had improvement COVID test here still positive Now asymptomatic and >20 days since initial positive test--> discussed with Infection Control--> removed COVID precautions (3) Hypertension: Plan: BPs improved today, not as soft - continue to hold HCTZ, quinapril but should be ok to restart on discharge tomorrow - continue verapamil w/ hold parameters (4) Sleep apnea: Plan: continue home CPAP qhs (5) Deep vein thrombosis: Plan: h/o such in 2010, unprovoked, treated with AC for several months -continue on SCDs, encourage mobilization as able can't use Lovenox in setting of spine surgery -she plans on wearing ANA hose at home and frequent ambulation after discharge (6) Hyperlipidemia: Plan: continue statin (7) Diabetes mellitus, type 2: Plan: - holding metformin - Novolog SSI - A1c 7.1%, well controlled -ADA diet Plan: DVT proph- SCDs Dispo-continued stay, but likely home on Thursday as per Ortho Admission and Anticipated Discharge Date Admission Date: June 17, 2021 Subjective Feeling constipated, bloated. Is eating and drinking, has been OOB to chair all day and needs a pain pill for lower back pain. Has been wearing SCDs in bed and plans on wearing ANA hose at home after discharge No CP or SOB Review of Systems Review of Systems: All systems reviewed & are unremarkable except as noted in HPI & below Physical Exam Constitutional: WD/WN, vitals as above Eyes: + anicteric sclerae Neck: trachea midline, no thyromegaly Respiratory: normal respiratory effort, lungs clear to auscultation Cardiovascular: RRR, no murmur, no edema Chest (Breasts): Chest: normal inspection of chest Gastrointestinal (Abdomen): normal bowel sounds, soft, nontender, no hepatosplenomegaly Musculoskeletal: Extremities: extremities normal to inspection; no cyanosis and no clubbing no calf tenderness Skin: no rashes, warm and dry Neurologic: moves all extremities and awake; no focal motor deficits Psychiatric: A+Ox3, euthymic affect Lymphatic: no lymphedema Results & Data Results & Data ([facility]) Vital Signs (Past 12 Hours) Vital Signs Temp Pulse Resp BP Pulse Ox 06/23/21 07:16 35.8 C L 68 20 138/81 94 Laboratory Results 06/23/21 06/23/21 06/23/21 Range/Units 12:21 08:06 05:39 WBC (4.8-10.8) K/uL RBC (4.2-5.4) M/uL Hgb (12.0-16.0) g/dL Hct (37-47) % MCV (80-100) fL MCH (25-34) pg MCHC (32-36) g/dL RDW Std Deviation (36.4-46.3) fL RDW Coeff of Mone (11.5-14.5) % Plt Count (130-400) K/uL MPV (7.4-10.4) fL Immature Gran % (Auto) % Neut % (Auto) % Lymph % (Auto) % [place] % (Auto) % Eos % (Auto) % Baso % (Auto) % Neut # (Auto) (1.4-6.5) K/uL Lymph # (Auto) (1.2-3.4) K/uL [place] # (Auto) (0.11-0.59) K/uL Eos # (Auto) (0-0.5) K/uL Baso # (Auto) (0-0.2) K/uL Immature Gran # (Auto) (0.00-0.02) K/uL Sodium 140 (136-145) mmol/L Potassium 3.9 (3.5-5.1) mmol/L Chloride 105 (98-107) mmol/L Carbon Dioxide 30 (21-32) mmol/L Anion Gap 5.0 (3-11) BUN 25 H (7-18) mg/dl Creatinine 0.74 (0.6-1.2) mg/dl Est Cr Clr Drug Dosing 91.3 ml/min Est GFR ( Amer) 97.2 ml/min Est GFR (Non-Af Amer) 83.8 ml/min BUN/Creatinine Ratio 34.1 H (10-20) Glucose 159 H (70-99) mg/dl POC Glucose 181 H 137 H (70-99) mg/dl Calcium 9.0 (8.5-10.1) mg/dl 06/23/21 06/22/21 06/22/21 Range/Units 05:39 20:36 17:29 WBC 13.90 H (4.8-10.8) K/uL RBC 3.24 L (4.2-5.4) M/uL Hgb 9.7 L (12.0-16.0) g/dL Hct 29.5 L (37-47) % MCV 91.0 (80-100) fL MCH 29.9 (25-34) pg MCHC 32.9 (32-36) g/dL RDW Std Deviation 43.6 (36.4-46.3) fL RDW Coeff of Mone 12.9 (11.5-14.5) % Plt Count 249 (130-400) K/uL MPV 11.2 H (7.4-10.4) fL Immature Gran % (Auto) 0.4 % Neut % (Auto) 72.2 % Lymph % (Auto) 15.7 % [place] % (Auto) 11.6 % Eos % (Auto) 0.0 % Baso % (Auto) 0.1 % Neut # (Auto) 10.05 H (1.4-6.5) K/uL Lymph # (Auto) 2.18 (1.2-3.4) K/uL [place] # (Auto) 1.61 H (0.11-0.59) K/uL Eos # (Auto) 0.00 (0-0.5) K/uL Baso # (Auto) 0.01 (0-0.2) K/uL Immature Gran # (Auto) 0.05 H (0.00-0.02) K/uL Sodium (136-145) mmol/L Potassium (3.5-5.1) mmol/L Chloride (98-107) mmol/L Carbon Dioxide (21-32) mmol/L Anion Gap (3-11) BUN (7-18) mg/dl Creatinine (0.6-1.2) mg/dl Est Cr Clr Drug Dosing ml/min Est GFR ( Amer) ml/min Est GFR (Non-Af Amer) ml/min BUN/Creatinine Ratio (10-20) Glucose (70-99) mg/dl POC Glucose 185 H 173 H (70-99) mg/dl Calcium (8.5-10.1) mg/dl PG Care Time/CCT Total # of Minutes Spent Total Time Spent with Patient: Total time spent is greater than 50% in coordination of care (as documented) at patient's floor/unit and/or counseling patient: Coding Level of Care Code 71230 Subseq Hosp Care Lvl 2 Diagnoses Neurogenic claudication due to lumbar spinal stenosis M48.062 COVID-19 U07.1 Hypertension I10 Sleep apnea G47.30 Deep vein thrombosis I82.409 Hyperlipidemia E78.5 Diabetes mellitus, type 2 E11.9
[2021-06-23] MEDS: SENNA 8.6 MG TAB PO SCH (17:52)
[2021-06-23] MEDS: CETIRIZINE HCL 10 MG TABLET PO SCH (22:21)
[2021-06-23] MEDS: ATORVASTATIN 40 MG TAB PO SCH (22:21)
[2021-06-24] MEDS: oxyCODONE HCL IR 5 MG TAB (IMMEDIATE RELEASE) PO PRN ×2 (07:57→11:40)
[2021-06-24] MEDS: VERAPAMIL HCL 240 MG TABCR PO SCH (09:20)
[2021-06-24] MEDS: DOCUSATE SODIUM 100 MG CAP PO SCH (09:20)
[2021-06-24] MEDS: SENNA 8.6 MG TAB PO SCH (09:20)
[2021-06-24] MEDS: POLYETHYLENE (MIRALAX) 17 GM PACK PO SCH (09:20)
[2021-06-24] MEDS: LIDOCAINE 5% 1 PATCH TD SCH (09:20)
[2021-06-24] MEDS: VENLAFAXINE HCL XR 75 MG CAPXR PO SCH (09:21)
[2021-06-24] MEDS: dexAMETHasone 8 MG in SYRINGE 0 ML IV SCH (09:21)
[2021-06-24] MEDS: INSULIN ASPART 100 UNITS/ML VIAL SC SCH ×2 (09:27→12:56)
--- NOTE | 2021-06-24 10:28 | Discharge Summary ---
Date of Service June 24, 2021 Admission HPI Per Admitting Provider 66 yo F with chronic low back pain who follows with Dr. Quintero presents to the ER this evening for worsening low back pain. She states that the pain got steadily worse this afternoon. No inciting incident to worsen pain. Does have some peripheral tingling/numbness in the left leg. Pain radiates down left leg. No nausea/vomiting/diarrhea/constipation. She states the pain is the same pain she's had for months but just steadily getting worse because her surgery has gotten rescheduled multiple times. She was already scheduled for surgery with Dr. Quintero tomorrow 06/18. Principal Diagnosis Lumbar spinal stenosis with neurogenic claudication Discharge Data Allergies Allergy/AdvReac Type Severity Reaction Status Date / Time No Known Allergies Allergy Verified 03/20/21 14:27 Consultations 06/17/21 21:56 Consult Orthopedic Surgery Routine Procedures Performed Operation Date: 06/20/21 13:05 Actual Procedures p L4-S1 Lumbar Decompression and Fusion with Neuro Monitoring (Not Applicable) - Luciano Quintero DO Ordered Studies 06/18/21 08:35 MR lumbar spine wo con Routine 06/20/21 13:05 FL lumbar spine 2-3V Routine Hospital Course (1) Lumbar radiculopathy: Patient was admitted with severe back and leg pain. She ultimately underwent lumbar decompression fusion to address severe neural compression. She tolerated this well was taken to the orthopedic floor postoperatively. Postoperatively she was up and ambulating leg pain improved MONTSE drain decreasing appropriately. Subsequently discharged home. Discharge orders instructions were on the chart for further review. Total Time Total Time Spent Total Time Spent (In Minutes): 20 minutes Discharge Plan Discharge Items Patient Disposition: Home - Self-Care Reason For Visit: PAIN CONTROL Discharge Diagnosis: Lumbar spinal stenosis with neurogenic claudication Activity: As commented below Non-emergency contact: Primary Care Provider Call non-emergency contact if: you have any medication questions Follow-up/Referrals: Shlely Bynum D.O. [Primary Care Provider] - Diet: Regular Addtl Attending Provider Instructions: ACTIVITY RECOMMENDATIONS: SELF CARE INSTRUCTIONS AFTER THORACIC/LUMBAR FUSIONS 1. You may walk to your tolerance. It is good exercise for your legs and back. Expect some back and intermittent leg aches and pains. 2. You may perform "counter-top" level activities (make a sandwich, matthew with a project, etc.). 3. No bending or lifting of more than 10 pounds or back twisting of any nature (roll like a log when turning in bed). 4. You may ride in a car for 20-30 minutes at a time. No driving until after your first visit with your doctor. 5. Frequent changes of position and restricting sitting to 30 minutes at a time will help limit the amount of back spasms and stiffness you may experience. 6. You may discontinue the use of ambulatory aids (cane, crutches, etc.) once your strength and confidence allow. 7. You may supervisor pipe finishing the shower and let water strike your incision when you arrive home at least once daily. Do not take a tub bath, sit in a hot tub or go into a swimming pool until after your first recheck in the office. SPECIAL CARE INSTRUCTIONS: VERY IMPORTANT TO READ AND REVIEW A. Your surgical incision has been closed with a cosmetic suture under the skin that will dissolve in about 6 weeks. In 14 days, you can use a pair of clean scissors and cut the suture that is left outside of the skin at the ends of your incision. 1. The small skin tapes can be removed 7 days after surgery if they have not fallen off by that point. 2. You may keep the wound open to air as much as possible to promote healing after post-op day number 5 unless told otherwise by your doctor. 3. If you think the wound looks like it is becoming infected (redness or worsening drainage) and/or you are experiencing fever, chill or worsening back pain and muscle spasms, contact the office so that we may evaluate you as soon as possible. B. Complications are uncommon, but please contact us if you have any signs or symptoms of: 1. wound infection (fever higher than 102.5 degrees F, redness, separation of wound, drainage, or increasing pain from the incision) 2. blood clots in legs (pain, swelling, redness and warmth in legs) 3. urinary tract infection (fever higher than 102.5 degrees F, burning upon urination or increased frequency of urination) 4. nerve problems (inability to walk on your toes or heels, numbness, loss of bowel or bladder control) 5. any other symptoms that concern you C. Please call the office at if you have any concerns or questions about your operation or recovery. D. No smoking! Smoking drastically decreases the chance of a solid fusion. E. Do not take any anti-inflammatory medications (Indocin, Advil, Motrin, Aspirin, Naprosyn, etc.) as these may inhibit the chance of a solid fusion. Tylenol is okay to take for pain. MANAGING PAIN AFTER SPINAL SURGERY 1. Narcotic medication is intended for short-term use and will be provided for surgical pain. Surgical pain usually lasts for a period of 4-6 weeks. Narcotic medication includes Percocet, Vicodin, Darvocet, Tylenol #3 or Lortab. 2. Longer-term pain is more appropriately treated with non-narcotic medication such as Tylenol ES. 3. Muscle spasm is not appropriately treated with narcotics. Muscle relaxers such as Soma, Flexeril or Skelaxin can be used along with Tylenol ES. 4. Remember that we all live with some "aches and pains". This is not unusual or uncommon after an injury or as we get older. a. Back pain is expected and may include muscle spasms for 4 to 6 weeks after surgery. The pain should gradually improve. If the pain worsens for no apparent reason, please contact the office. b. Intermittent leg pain may also be experienced and should not be concerned about unless it worsens for no apparent reason. If so, please contact the office. 5. We will provide appropriate medication within the normal guidelines of their prescribed use. We will also be very cautious and aware of potential abuse and extended duration of patients' medication needs. a. Pain medications are for your comfort and to assist with sleep and rest so that the tissue can heal. They are not provided in order to return to normal activity and should not be used through the day. To do so or worsening pain at night can result from ongoing tissue damage and development of tolerance to the prescribed medicine. 6. Please allow 2-3 days to process refills. Prescriptions will not be mailed but must be picked up at the office. FOLLOW UP VISIT: Keep your scheduled follow-up appointment. Any questions, please call the office at . Pending Studies at Discharge: No Stand-Alone Forms: My [place], Smoking Cessation Medications and DC Order Prescriptions: New tramadol 50 mg tablet 50 mg PO Q6H PRN (Reason: pain, moderate) Qty: 30 RF: 0 oxycodone 5 mg tablet 5 mg PO Q6H PRN (Reason: pain, severe) Qty: 30 RF: 0 Continued metformin 500 mg Tablet 500 mg PO BID RF: 0 potassium chloride 10 mEq Capsule, Extended Release 10 meq PO QAM RF: 0 venlafaxine 75 mg Tablet 75 mg PO QAM RF: 0 quinapril 40 mg Tablet 40 mg PO QPM RF: 0 verapamil 240 mg Tablet Extended Release 240 mg PO QAM RF: 0 hydrochlorothiazide 25 mg Tablet 25 mg PO QAM RF: 0 levocetirizine 5 mg Tablet 5 mg PO QPM RF: 0 multivitamin Tablet 1 tab PO QAM RF: 0 atorvastatin 80 mg Tablet 80 mg PO QPM RF: 0 ascorbic acid (vitamin C) [Vitamin C] 500 mg Tablet 500 mg PO QAM RF: 0 ferrous sulfate [iron] 325 mg (65 mg iron) Tablet 325 mg PO QAM RF: 0 cinnamon bark [Cinnamon] 500 mg Capsule 1,000 mg PO QPM RF: 0 lutein 20 mg Capsule 20 mg PO QAM RF: 0 coQ10 (ubiquinol) 100 mg Capsule 100 mg PO QAM RF: 0 aspirin 81 mg Tablet,Delayed Release (Dr/Ec) 81 mg PO DAILY RF: 0 omega [id number] oil [Fish Oil] 1,000 mg (120 mg-180 mg) Capsule 1 cap PO BID RF: 0 Calcium Magnesium 500 mg calcium -250 mg Tablet 1 tab PO QAM RF: 0 Discontinued diclofenac sodium 50 mg Tablet,Delayed Release (Dr/Ec) 50 mg PO QAM RF: 0 Discharge Orders: Discharge Order (Routine); Ordered 06/24/21 Ordered By: Luciano Mane/Other Patient Handouts: A1C, Managing Type 2 Diabetes Admission Data Admit Date/Time: 06/17/21 21:16 Attending Provider: Adolfo Mackenzie Admit Provider: Marla Guthrie Primary Care Provider: Shelly Bynum Other Providers: Luciano Quintero
--- NOTE | 2021-06-24 12:20 | Discharge Summary ---
Date of Service June 24, 2021 Admission HPI Per Admitting Provider 66 yo F with chronic low back pain who follows with Dr. Quintero presents to the ER this evening for worsening low back pain. She states that the pain got steadily worse this afternoon. No inciting incident to worsen pain. Does have some peripheral tingling/numbness in the left leg. Pain radiates down left leg. No nausea/vomiting/diarrhea/constipation. She states the pain is the same pain she's had for months but just steadily getting worse because her surgery has gotten rescheduled multiple times. She was already scheduled for surgery with Dr. Quintero tomorrow 06/18. Principal Diagnosis Neurogenic Claudication due to Lumbar Stenosis Discharge Exam Constitutional: WD/WN, vitals as above Eyes: + anicteric sclerae Neck: trachea midline, no thyromegaly Respiratory: normal respiratory effort, lungs clear to auscultation Cardiovascular: RRR, no murmur, no edema Gastrointestinal (Abdomen): normal bowel sounds, soft, nontender Musculoskeletal: Extremities: extremities normal to inspection; no cyanosis and no clubbing no calf tenderness Skin: no rashes, warm and dry Neurologic: moves all extremities and awake; no focal motor deficits Psychiatric: A+Ox3, euthymic affect Lymphatic: no lymphedema Discharge Data Allergies Allergy/AdvReac Type Severity Reaction Status Date / Time No Known Allergies Allergy Verified 03/20/21 14:27 Consultations 06/17/21 21:56 Consult Orthopedic Surgery Routine Procedures Performed Operation Date: 06/20/21 13:05 Actual Procedures p L4-S1 Lumbar Decompression and Fusion with Neuro Monitoring (Not Applicable) - Luciano Quintero DO Ordered Studies Lumbar Spine MRI 06/18/21 08:35 MR lumbar spine wo con CLINICAL HISTORY: 66 years-old Female with leg pain. Acute severe low back pain with radiation into the left lower extremity. Left lower extremity numbness. COMPARISON: None. TECHNIQUE: Multiplanar, multi sequence MRI of the lumbar spine was performed without intravenous contrast. FINDINGS: Mildly motion degraded exam. 7.7 x 5.9 cm T2 hyperintense lesion of the right kidney is suggestive of a probable cyst, partially imaged on this study. 1.3 cm L4 and 0.7 cm T11 vertebral body hemangiomata. 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 No acute fracture, subluxation or endplate erosion. Minimal bone marrow edema involving the right L5 pedicle may represent a mild stress response. The conus medullaris terminates at L1-L2. Signal within the imaged thoracic spinal cord and cauda equina appears unremarkable. T11-T12: Mild spondylitic spurring with small posterior annular disc bulge and mild facet arthrosis. Flattening of the ventral thecal sac without significant central canal or neural foraminal narrowing. T12-L1: Mild spondylitic spurring and facet arthrosis. No central canal or neural foraminal stenosis. L1-L2: Mild spondylitic spurring and facet arthrosis. No central canal or neural foraminal stenosis. L2-L3: Minimal intervertebral disc space narrowing with disc desiccation. Mild spondylitic spurring with small posterior annular disc bulge. No central canal or neural foraminal stenosis. L3-L4: Mild disc desiccation with spondylitic spurring and small circumferential annular disc bulge favoring the right lateral recess and right neural foramen. There is ligamentum flavum thickening with mild facet arthrosis. No central canal or neural foraminal stenosis. L4-L5: 4 mm anterolisthesis. Mild intervertebral disc space narrowing with disc desiccation, spondylitic spurring and circumferential annular disc bulge favoring the right neural foramen and far lateral distribution. Severe facet arthrosis with ligamentum flavum thickening. Severe central canal stenosis with AP dimension of the thecal sac measuring approximately 5 mm. Severe right with [id number] left neural foraminal narrowing. L5-S1: 6 mm anterolisthesis. Mild intervertebral disc space narrowing with disc desiccation, spondylitic spurring and circumferential annular disc bulge/disc space uncovering. Severe facet arthrosis. Moderate central canal stenosis, AP dimension of the thecal sac measuring 8 mm. There is at least moderate narrowing of the left lateral recess. Moderate right with moderate to severe left neural foraminal narrowing. IMPRESSION: 1. Grade 1 anterolisthesis L4 on L5 and L5 on S1 is likely secondary to chronic severe facet arthrosis. 2. At L4-L5, there is severe central canal stenosis with severe right and [id number] left neural foraminal narrowing. 3. Moderate central canal stenosis at L5-S1. 4. Multilevel neural foraminal narrowing as above. ACT 112: Negative or not required by law. The above report was generated using voice recognition software. It may contain grammatical, syntax or spelling errors. Dictated: 06/18/2021 11:55 AM Transcribed: 06/18/2021 12:39 PM Jody [id number] [email or web address] Electronically signed by: Camilo Chun M.D. 06/18/2021 12:52 PM Lumbar Spine X-Ray 06/20/21 13:05 FL lumbar spine 2-3V CLINICAL HISTORY: L4-S1 D/F/I TECHNIQUE: 2 views were obtained with the C-arm in the OR with the above procedure. Total fluoroscopy time was 12.0 seconds. Total skin dose was 16.34 mGy. Comparison: Comparison is made to MRI lumbar spine 06/18/2021 FINDINGS/IMPRESSION: Multiple intraoperative images were obtained of discectomy and fusion. Please correlate with intraoperative fluoroscopy and operative report. ACT 112: Negative or not required by law. Electronically signed by: Aodlfo Vitale M.D. 06/20/2021 4:33 PM Hospital Course (1) Neurogenic claudication due to lumbar spinal stenosis: 66 yo F with hx neurogenic claudication due to lumbar spinal stenosis admitted for pain control and surgical intervention - Improved radicular symptoms now s/p surgery - S/P lumbar decompression and fusion on 06/[address] Quintero - Hemodynamically stable - Continue pain control - prescribed by Dr. Quintero - Continue bowel regimen - has been utilizing Miralax can do OTC; ambulation as pain improves (2) COVID-19: - Tested positive on 05/29 and had sinus congestion and headache for a few days, received Regeneron on 06/02 and had improvement - COVID test here still positive - Now asymptomatic and >20 days since initial positive test - no COVID restrictions needed (3) Hypertension: - BPs improved today, not as soft - slightly hypertensive - May resume HCTZ and quinapril; Continue Verapamil (4) Sleep apnea: - continue home CPAP qhs (5) Deep vein thrombosis: - h/o such in 2010, unprovoked, treated with AC for several months - continue TEDs and encourage ambulation at home - can't use Lovenox in setting of spine surgery (6) Hyperlipidemia: continue statin (7) Diabetes mellitus, type 2: - Continue metformin - A1c 7.1%, well controlled - ADA diet DVT proph- SCDs/TEDs/Ambulation Dispo- Home without services; has walker at home Total Time Total Time Spent Total Time Spent (In Minutes): Spent greater than 30 minutes preparing patient for discharge. This includes discussion with patient/family, assessment, intervention, medication reconciliation, and coordination of care. Discharge Plan Discharge Items Patient Disposition: Home - Self-Care Reason For Visit: PAIN CONTROL Discharge Diagnosis: Lumbar spinal stenosis with neurogenic claudication Activity: As commented below Non-emergency contact: Primary Care Provider Call non-emergency contact if: you have any medication questions Follow-up/Referrals: Luciano Quintero DO [Surgeon] - 07/04/21 12:45 pm (Appointment will be the [facility] office) Shelly Bynum D.O. [Primary Care Provider] - Diet: Regular Addtl Attending Provider Instructions: ACTIVITY RECOMMENDATIONS: SELF CARE INSTRUCTIONS AFTER THORACIC/LUMBAR FUSIONS 1. You may walk to your tolerance. It is good exercise for your legs and back. Expect some back and intermittent leg aches and pains. 2. You may perform "counter-top" level activities (make a sandwich, matthew with a project, etc.). 3. No bending or lifting of more than 10 pounds or back twisting of any nature (roll like a log when turning in bed). 4. You may ride in a car for 20-30 minutes at a time. No driving until after your first visit with your doctor. 5. Frequent changes of position and restricting sitting to 30 minutes at a time will help limit the amount of back spasms and stiffness you may experience. 6. You may discontinue the use of ambulatory aids (cane, crutches, etc.) once your strength and confidence allow. 7. You may all source intelligence the shower and let water strike your incision when you arrive home at least once daily. Do not take a tub bath, sit in a hot tub or go into a swimming pool until after your first recheck in the office. SPECIAL CARE INSTRUCTIONS: VERY IMPORTANT TO READ AND REVIEW A. Your surgical incision has been closed with a cosmetic suture under the skin that will dissolve in about 6 weeks. In 14 days, you can use a pair of clean scissors and cut the suture that is left outside of the skin at the ends of your incision. 1. The small skin tapes can be removed 7 days after surgery if they have not fallen off by that point. 2. You may keep the wound open to air as much as possible to promote healing after post-op day number 5 unless told otherwise by your doctor. 3. If you think the wound looks like it is becoming infected (redness or worsening drainage) and/or you are experiencing fever, chill or worsening back pain and muscle spasms, contact the office so that we may evaluate you as soon as possible. B. Complications are uncommon, but please contact us if you have any signs or symptoms of: 1. wound infection (fever higher than 102.5 degrees F, redness, separation of wound, drainage, or increasing pain from the incision) 2. blood clots in legs (pain, swelling, redness and warmth in legs) 3. urinary tract infection (fever higher than 102.5 degrees F, burning upon urination or increased frequency of urination) 4. nerve problems (inability to walk on your toes or heels, numbness, loss of bowel or bladder control) 5. any other symptoms that concern you C. Please call the office at if you have any concerns or questions about your operation or recovery. D. No smoking! Smoking drastically decreases the chance of a solid fusion. E. Do not take any anti-inflammatory medications (Indocin, Advil, Motrin, Aspirin, Naprosyn, etc.) as these may inhibit the chance of a solid fusion. Tylenol is okay to take for pain. MANAGING PAIN AFTER SPINAL SURGERY 1. Narcotic medication is intended for short-term use and will be provided for surgical pain. Surgical pain usually lasts for a period of 4-6 weeks. Narcotic medication includes Percocet, Vicodin, Darvocet, Tylenol #3 or Lortab. 2. Longer-term pain is more appropriately treated with non-narcotic medication such as Tylenol ES. 3. Muscle spasm is not appropriately treated with narcotics. Muscle relaxers such as Soma, Flexeril or Skelaxin can be used along with Tylenol ES. 4. Remember that we all live with some "aches and pains". This is not unusual or uncommon after an injury or as we get older. a. Back pain is expected and may include muscle spasms for 4 to 6 weeks after surgery. The pain should gradually improve. If the pain worsens for no apparent reason, please contact the office. b. Intermittent leg pain may also be experienced and should not be concerned about unless it worsens for no apparent reason. If so, please contact the office. 5. We will provide appropriate medication within the normal guidelines of their prescribed use. We will also be very cautious and aware of potential abuse and extended duration of patients' medication needs. a. Pain medications are for your comfort and to assist with sleep and rest so that the tissue can heal. They are not provided in order to return to normal activity and should not be used through the day. To do so or worsening pain at night can result from ongoing tissue damage and development of tolerance to the prescribed medicine. 6. Please allow 2-3 days to process refills. Prescriptions will not be mailed but must be picked up at the office. FOLLOW UP VISIT: Keep your scheduled follow-up appointment. Any questions, please call the office at . Pending Studies at Discharge: No Stand-Alone Forms: My [employer], Smoking Cessation Medications and DC Order Prescriptions: New tramadol 50 mg tablet 50 mg PO Q6H PRN (Reason: pain, moderate) Qty: 30 RF: 0 oxycodone 5 mg tablet 5 mg PO Q6H PRN (Reason: pain, severe) Qty: 30 RF: 0 Continued metformin 500 mg Tablet 500 mg PO BID RF: 0 potassium chloride 10 mEq Capsule, Extended Release 10 meq PO QAM RF: 0 venlafaxine 75 mg Tablet 75 mg PO QAM RF: 0 quinapril 40 mg Tablet 40 mg PO QPM RF: 0 verapamil 240 mg Tablet Extended Release 240 mg PO QAM RF: 0 hydrochlorothiazide 25 mg Tablet 25 mg PO QAM RF: 0 levocetirizine 5 mg Tablet 5 mg PO QPM RF: 0 multivitamin Tablet 1 tab PO QAM RF: 0 atorvastatin 80 mg Tablet 80 mg PO QPM RF: 0 ascorbic acid (vitamin C) [Vitamin C] 500 mg Tablet 500 mg PO QAM RF: 0 ferrous sulfate [iron] 325 mg (65 mg iron) Tablet 325 mg PO QAM RF: 0 cinnamon bark [Cinnamon] 500 mg Capsule 1,000 mg PO QPM RF: 0 lutein 20 mg Capsule 20 mg PO QAM RF: 0 coQ10 (ubiquinol) 100 mg Capsule 100 mg PO QAM RF: 0 aspirin 81 mg Tablet,Delayed Release (Dr/Ec) 81 mg PO DAILY RF: 0 omega 6-cok-emm-fish oil [Fish Oil] 1,000 mg (120 mg-180 mg) Capsule 1 cap PO BID RF: 0 Calcium Magnesium 500 mg calcium -250 mg Tablet 1 tab PO QAM RF: 0 Discontinued diclofenac sodium 50 mg Tablet,Delayed Release (Dr/Ec) 50 mg PO QAM RF: 0 Discharge Orders: Discharge Order (Routine); Ordered 06/24/21 Ordered By: Luciano Mane/Other Patient Handouts: A1C, Managing Type 2 Diabetes Admission Data Admit Date/Time: 06/17/21 21:16 Attending Provider: Adolfo Mackenzie Admit Provider: Marla Guthrie Primary Care Provider: Shelly yBnum Other Providers: Luciano Quintero Other Interventions: Discharge Summary Assessment (RN) Last Done: 06/24/21 10:49 Supervising Physician Co-Signing Physician Notes Attending note: patient seen and examined with Frances Webster PA-C. I agree with her discharge summary. I personally reviewed the labs and imaging findings. patient recovering from surgery, she will follow up with Dr. Quintero - s/p lumbar decompression: pain is controlled, ambulating, will get therapy, follow up with Dr. Quintero Coding Level of Care Code D/C DAY MANAGEMENT >30 MINS Diagnoses Neurogenic claudication due to lumbar spinal stenosis M48.062 COVID-19 U07.1 Hypertension I10 Sleep apnea G47.30 Deep vein thrombosis I82.409 Hyperlipidemia E78.5 Diabetes mellitus, type 2 E11.9
== END 2021-06-24 14:20 | disposition home or self-care (01) | DRG 453 ==
LOC: ED 17:29 → SUATTDRO 21:16 → 3E 21:16 → 3W 06-18 11:28